=== PATIENT | male | born 1985 | race African-American/Black ===

== ENCOUNTER 2016-10-25 01:51 | Emergency (ER) | payer MEDICARE, MEDICAID ==
[2016-10-25] MEDS ORDERED: ACETAMINOPHEN 325 MG TABLET PO ONE (04:23)
[2016-10-25] MEDS ORDERED: LORAZEPAM 1 MG TABLET PO ONE (04:23)
--- NOTE | 2016-10-25 04:24 | ER Document Report ---
ED General - General TRAVEL OUTSIDE OF THE U.S. IN LAST 30 DAYS: No <LUDWIN ANSARI - Last Filed: 10/25/16 07:04> <JEANNA PRUITT - Last Filed: 10/25/16 13:03> - General Chief Complaint: Ankle Pain Stated Complaint: LEFT KNEE PAIN Notes: Patient is a 31-year-old male who presents with complaints of ankle pain. The ankle pain has been there for a while. On the interview patient is talking very rapidly and going from 1 topic to another without a smooth transition. Very consistent with priyanka. Patient says he did receive a shot of new [place] for his bipolar depression priyanka. She says that he is not due for another shot for another 26 days. He says he is taking other medications but he cannot focus long enough to tell me exactly what they are. 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 He says the pain is now improving. He says no new injury. (LUDWIN ANSARI) - Related Data Allergies/Adverse Reactions: Penicillins Allergy (Verified 08/27/16 07:28) IVP DYE Allergy (Uncoded 03/06/16 18:28) Past Medical History - Social History Smoking Status: Unknown if Ever Smoked Frequency of alcohol use: None Drug Abuse: None Family History: Reviewed & Not Pertinent, Other - mental illness Neurological Medical History: Reports: Hx Seizures Psychiatric Medical History: Reports: Hx Anxiety, Hx Bipolar Disorder, Hx Obsessive Compulsive Disorder - Immunizations Hx Diphtheria, Pertussis, Tetanus Vaccination: No <LUDWIN ANSARI - Last Filed: 10/25/16 07:04> Review of Systems <LUDWIN ANSARI - Last Filed: 10/25/16 07:04> <JEANNA PRUITT - Last Filed: 10/25/16 13:03> - Review of Systems Notes: My Normal Review Basic REVIEW OF SYSTEMS: CONSTITUTIONAL : Denies fever, chills, or sweats. Denies recent illness. EENT: Denies eye, ear, throat, or mouth pain or symptoms. Denies nasal or sinus congestion. RESPIRATORY: Denies cough, cold, or chest congestion. Denies shortness of breath, difficulty breathing, or wheezing. GASTROINTESTINAL: Denies abdominal pain. Denies nausea, vomiting, or diarrhea. Denies constipation. Last BM: MUSCULOSKELETAL: Denies neck or back pain or joint pain or swelling. SKIN: Denies rash or skin lesions. NEUROLOGICAL: Denies altered mental status or loss of consciousness. Denies headache. Denies weakness or paralysis or loss of use of either side. Denies problems with gait or speech. Denies sensory or motor loss. PSYCHIATRIC: Priyanka ALL OTHER SYSTEMS REVIEWED AND NEGATIVE. (LUDWIN ANSARI) Physical Exam <LUDWIN ANSARI - Last Filed: 10/25/16 07:04> <JEANNA PRUITT - Last Filed: 10/25/16 13:03> - Vital signs Vitals: Temp Pulse Resp BP Pulse Ox 98.0 F 126 H 18 133/83 H 96 10/25/16 02:27 10/25/16 02:27 10/25/16 02:27 10/25/16 02:27 10/25/16 02:27 (LUDWIN ANSARI) (JEANNA PRUITT) - Notes Notes: General Appearance: Well nourished, alert, cooperative, no acute distress, no obvious discomfort. Vitals: reviewed, See vital signs table. Head: no swelling or tenderness to the head Eyes: PERRL, EOMI, Conjuctiva clear Mouth: No decreasd moisture Neck: Supple, no neck tenderness, No thyromegaly Lungs: No wheezing, No rales, No rhonci, No accessory muscle use, good air exchange bilaterally. Heart: Normal rate, Regular rythm, No murmur, no rub Abdomen: Normal BS, soft, No rigidity, No abdominal tenderness, No guarding, no rebound, no abdominal masses, no organomegaly Extremities: strength 5/5 in all extremities, good pulses in all extremities, no swelling or tenderness in the extremities, no edema. Skin: warm, dry, appropriate color, no rash Neuro: speech clear, oriented x 3, normal affect, responds appropriately to questions. (LUDWIN ANSARI) Course - Laboratory Result Diagrams: 10/25/16 04:50 10/25/16 04:50 <LUDWIN ANSARI - Last Filed: 10/25/16 07:04> - Laboratory Result Diagrams: 10/25/16 04:50 10/25/16 04:50 <JEANNA PRUITT - Last Filed: 10/25/16 13:03> - Vital Signs Vital signs: Temp Pulse Resp BP Pulse Ox 98.0 F 80 18 130/80 H 100 10/25/16 08:21 10/25/16 08:21 10/25/16 08:21 10/25/16 08:21 10/25/16 08:21 (LUDWIN ANSARI) (JEANNA PRUITT) - Laboratory Laboratory results interpreted by me: 10/25/16 10/25/16 04:50 04:50 WBC 12.2 H RDW 14.2 H BUN 23 H Salicylates < 1.0 L Acetaminophen < 10 L (JEANNA PRUITT) - Transfer of Care Notes: 10/25/16 07:05 Patient is having complete flight of ideas. He is currently going from one topic to another. He is very tachycardic. He is speaking very fast. This. Having another manic episode. I have seen him in the past with similar presentation. We'll have psychiatry evaluate him. His ankle is fine. He is able walk without difficulties. X-ray was obtained and was negative. Patient is very agreeable to staying currently. 10/25/16 07:06 (LUDWIN ANSARI) Discharge <LUDWIN ANSARI - Last Filed: 10/25/16 07:04> <JEANNA PRUITT - Last Filed: 10/25/16 13:03> - Discharge Clinical Impression: Priyanka, Bipolar 1 disorder, Cannabis use disorder, mild, abuse Condition: Stable Disposition: HOME, SELF-CARE Instructions: Bipolar Disorder ([facility]) Additional Instructions: CONTINUE YOUR USUAL MEDS. FOLLOW UP WITH [facility] FOR ON-GOING CARE. Referrals: [facility] [Provider Group] - Follow up as needed
[2016-10-25 05:02] LABS: ABSOLUTE BASOPHILS # (AUTO) 0.1 10^3/uL (0.0-0.2); ABSOLUTE LYMPHOCYTES (AUTO) 3.3 10^3/uL (0.5-4.7); ABSOLUTE NEUT (AUTO) 7.6 10^3/uL (1.7-8.2); EOSINOPHILS % (AUTO) 0.3 % (0-6); HEMATOCRIT 42.7 % (37.9-51.0); HEMOGLOBIN 14.7 g/dL (13.5-17.0); HGB HCT DIFFERENCE 1.4; LYMPHOCYTES % (AUTO) 27.5 % (13-45); MEAN CORPUSCULAR HEMOGLOBIN 27.8 pg (27.0-33.4); MEAN CORPUSCULAR HGB CONC 34.4 g/dL (32.0-36.0); MEAN CORPUSCULAR VOLUME 81 fl (80-97); MONOCYTES % (AUTO) 8.4 % (3-13); RED BLOOD COUNT 5.29 10^6/uL (4.35-5.55); RED CELL DISTRIBUTION WIDTH 14.2 % (11.5-14.0); SEGMENTED NEUTROPHILS % (AUTO) 62.8 % (42-78); WHITE BLOOD COUNT 12.2 10^3/uL (4.0-10.5)
[2016-10-25 05:23] LABS: ALANINE AMINOTRANSFERASE 38 U/L (21-72); ALBUMIN 4.4 g/dL (3.5-5.0); ALKALINE PHOSPHATASE 84 U/L (38-126); ANION GAP 14 (5-19); ASPARTATE AMINO TRANSFERASE 25 U/L (17-59); BILIRUBIN,TOTAL 0.4 mg/dL (0.2-1.3); BLOOD UREA NITROGEN 23 mg/dL (7-20); CALCIUM 9.6 mg/dL (8.4-10.2); CARBON DIOXIDE 25 mmol/L (22-30); CHLORIDE 102 mmol/L (98-107); GLUCOSE 83 mg/dL (75-110); POTASSIUM 4.5 mmol/L (3.6-5.0); SODIUM 141.3 mmol/L (137-145); TOTAL PROTEIN 7.4 g/dL (6.3-8.2)
[2016-10-25 05:24] LABS: ALCOHOL < 10 mg/dL (NONE DETECTED)
[2016-10-25 06:03] LABS: APPEARANCE,URINE CLEAR; BILIRUBIN,URINE NEGATIVE (NEGATIVE); GLUCOSE, URINE NEGATIVE (NEGATIVE); KETONES,URINE NEGATIVE (NEGATIVE); LEUKOCYTE ESTERASE,URINE NEGATIVE (NEGATIVE); NITRITE,URINE NEGATIVE (NEGATIVE); PROTEIN,URINE NEGATIVE (NEGATIVE); URINE SPECIFIC GRAVITY 1.021; UROBILINOGEN,URINE NEGATIVE mg/dL (<2.0)
[2016-10-25 06:15] LABS: URINE BARBITURATES SCREEN NEGATIVE; URINE METHADONE SCREEN NEGATIVE; URINE PHENCYCLIDINE SCREEN NEGATIVE
--- NOTE | 2016-10-25 08:57 | EKG REPORT ---
SEVERITY:- OTHERWISE NORMAL ECG - SINUS TACHYCARDIA : Confirmed by: Mejia Kasper MD 25-Oct-2016 08:57:09
--- NOTE | 2016-10-25 10:00 | ER Document Report ---
Doctor's Note Notes: 10/25/16 09:58 Medical rounds: Chart reviewed and patient interviewed briefly. He continues to exhibit manic behavior, pressured speech and flight of ideas. His only physical complaint is pain in the ankle which has been evaluated by Dr. Luo. He does not appear to have any discomfort when ambulating. Laboratory values are satisfactory. Vital signs are stable. He is medically stable pending psychosocial evaluation and disposition.
[2016-10-25] MEDS ORDERED: OLANZAPINE 5 MG TABLET PO ONE (12:32)
--- NOTE | 2016-10-25 12:37 | PSYCHOLOGICAL NOTE ---
Psych Note - Psych Note Psych Note: Patient is a 31 year old male who initially presented to [facility] ED via EMS with c/ o ankle pain. Patient was medically cleared for ankle related complaints; however, was found to be manic with tangential speech/flight of ideas. Note, patient has two medical records, one containing the middle initial "L" and one without. Patient was most recently seen 09/26 for psychosis and was sent to [facility]. Patient this morning is pacing and hyperverbal. Patient remembers this clinician and talks openly (from his doorway) about [facility], etc. Patient is able to provide minimal information regarding any precipitating events, and maintains he has been medication compliant. Patient reports he was discharged from [facility] yesterday and is on day 5 of his 30 day Haldol shot. Patient does talk about other medications he is required to take, to include Zyprexa and Vistaril. Patient talks extensively about various stories, but provides little meaningful information and is difficult to track. However, patient is able to be redirected and return to topic with prompts. Patient denies suicidal/homicidal ideations, intent, plan, or means. Note, patient has a long history of requesting benzodiazapenes in lieu of mood stabilizers and or antipsychotics. Patient's Uncle, Casper : left [facility] requesting return contact Patient's mother, Martina Hunt states per APS, neither of her sons are permitted to stay in her residence. She did nto expand on this, but did state she is afraid of him, but denies there were any specific incidents to cause her to be afraid.[facility] states: the patient was discharged yesterday and was discharged with: Haldol Deconate ( admin 10/15 @ 150 mg), Vistaril 50 mg q6prn for anxiety; Zyprexa 15 mg qhs; Ambien. Prescriptions were sent to [facility], and patient was to follow up with [facility]. Additionally, patient was noted throughout his stay to present with grandiosity , and elevated mood with perseverative type thoughts. Patient's discharge plan reportedly included ANTHONY transporting patient back to his apartment where he would collect his belongings, and go to [employer] to withdraw money, and then go to [facility]. Patient is A&O. Mood is labile with occasional tearful or laughing affect. Patient denies suicidal/homicidal ideations, intent, plan, or means. Patient denies A/V h; it is unclear if he is experiencing delusions due to his rapid and pressured speech with tangential speech. 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 1. 296.40 (F31) Bipolar I Disorder, Unspecified 2. 305.20 (F12.10) Cannabis Use Disorder, Mild 3. R/O Anxiolytic, Benzodiazepine Use Disorder Patient is psychiatrically cleared for discharge to follow up with [facility]. Patient was inpatient at [facility] for multiple days, and was discharged yesterday. After discussion with [facility], patient's presentation upon discharge was described and is congruent to the current presentation. Patient is considered at his baseline, which includes elevated mood and tangential thoughts. Patient does not meet criteria for IVC per the [id number] as he is able to report how he cares for himself, denies suicidal/homicidal ideations, etc. Patient is able to be redirected when on a tangent, and will return to topic with prompts. Patient did in fact follow through with his discharge plan of care and states he plans to continue to follow through, by picking up his medications from the pharmacy, and returning to Inn until Wednesday. Patient provided contact information for his uncle, and a message was left requesting return contact. I consulted with Dr. Ogden in regards to the care and management of this patient. ED MD is in agreement with disposition and recommendations.
[2016-10-25 13:46] VITALS: BP 129/80
== END 2016-10-25 13:47 | disposition home or self-care (01) ==
LOC: ER 01:51
DX: F31.9 Bipolar disorder, unspecified (principal); F12.19 Cannabis abuse with unspecified cannabis-induced disorder; F41.9 Anxiety disorder, unspecified; R00.0 Tachycardia, unspecified; M25.579 Pain in unspecified ankle and joints of unspecified foot; G89.29 Other chronic pain; Z79.899 Other long term (current) drug therapy; Z91.041 Radiographic dye allergy status; Z88.0 Allergy status to penicillin
CPT/HCPCS: 93005; 99284; 36415; 85025; 80053; 81001; 73610; 93010; G0479 ×4; A9270 ×3; 80307; 99285

== ENCOUNTER 2016-10-25 23:34 | Emergency (ER) | payer MEDICARE, MEDICAID ==
--- NOTE | 2016-10-26 03:46 | ER Document Report ---
ED General - General TRAVEL OUTSIDE OF THE U.S. IN LAST 30 DAYS: No - HPI Patient complains to provider of: in need of psychiatric evaluation - General Chief Complaint: Psych Problem Stated Complaint: PYSCH EPISODE - HPI Notes: Patient [facility] for possible psychiatric evaluation. Patient was seen in the local law for Reji cote stated that he had no place to stay he was told to go to [facility] patient does say he may need a psychiatric evaluation and therefore was transferred here to the ER. Patient was recently seen and evaluated by psychiatric team the last 24 hours prior to this visit patient was given follow-up patient was staying at the days in. Upon my evaluation the patient patient sits up patienttalking with his hands as though he is signing. Patient states that "the police do not like me". Patient states that he is from [facility]. Patient also states that he can speak Welsh and "black people speak" patient states that he is unable to understand "white people speak" Otherwise patient does have some pressured speech and tangential thinking. Patient upon initial evaluation was sleeping easily arousable patient has no other complaints is not endorsing hallucinations homicidal suicidal ideation. Patient states that he was trying to get back to the [facility] however he is unaware of the name that his room is under he did try to contact his uncle however has is not be able to contact his family members. (MAURO SUTTON) - Related Data Allergies/Adverse Reactions: Penicillins Allergy (Verified 08/27/16 07:28) IVP DYE Allergy (Uncoded 03/06/16 18:28) Past Medical History - General Information source: Patient, Emergency Med Personnel - Social History Smoking Status: Current Every Day Smoker Chew tobacco use (# tins/day): No Frequency of alcohol use: Occasional Drug Abuse: None Family History: Reviewed & Not Pertinent, Other - mental illness Patient has suicidal ideation: No Patient has homicidal ideation: No Neurological Medical History: Reports: Hx Seizures Psychiatric Medical History: Reports: Hx Anxiety, Hx Bipolar Disorder, Hx Obsessive Compulsive Disorder - Immunizations Hx Diphtheria, Pertussis, Tetanus Vaccination: No Review of Systems - Review of Systems Constitutional: No symptoms reported EENT: No symptoms reported Cardiovascular: No symptoms reported Respiratory: No symptoms reported Gastrointestinal: No symptoms reported Genitourinary: No symptoms reported Male Genitourinary: No symptoms reported Musculoskeletal: No symptoms reported Skin: No symptoms reported Hematologic/Lymphatic: No symptoms reported Neurological/Psychological: Other - Tangential thought process Physical Exam - Vital signs Interpretation: Normal - General General appearance: Appears well, Alert - HEENT Head: Normocephalic, Atraumatic Eyes: Normal Pupils: PERRL - Respiratory Respiratory status: No respiratory distress Chest status: Nontender Breath sounds: Normal Chest palpation: Normal - Cardiovascular Rhythm: Regular Heart sounds: Normal auscultation Murmur: No - Abdominal Inspection: Normal Distension: No distension Bowel sounds: Normal Tenderness: Nontender Organomegaly: No organomegaly - Back Back: Normal, Nontender - Extremities General upper extremity: Normal inspection, Nontender, Normal color, Normal ROM , Normal temperature General lower extremity: Normal inspection, Nontender, Normal color, Normal ROM , Normal temperature, Normal weight bearing. No: Shala's sign - Neurological Neuro grossly intact: Yes Cognition: Normal Orientation: AAOx4 [place] Coma Scale Eye Opening: Spontaneous Kavita Coma Scale Verbal: Oriented [place] Coma Scale Motor: Obeys Commands [place] Coma Scale Total: 15 Speech: Normal Motor strength normal: LUE, RUE, LLE, RLE Sensory: Normal - Psychological Associated symptoms: Anxious, Tangential speech, Other - Pressure speech - Skin Skin Temperature: Warm Skin Moisture: Dry Skin Color: Normal Course - Re-evaluation Re-evalutation: 10/26/16 03:45 Patient was recent seen and evaluated by psychiatric team. At this time we are trying to locate family members taken take custody of the patient. Patient does have underlying psychiatric disease and more likely is malingering however at this time does not think he meets any criteria for IVC but would be hesitant to discharge patient without proper resources. If we are unable to contact family members take custody of the patient patient should be evaluated by her public health social worker and possibly her psychiatric of team in the morning for local resources. 10/26/16 03:47 (MAURO SUTTON) - Vital Signs Vital signs: Temp Pulse Resp BP Pulse Ox 96.9 F L 73 16 121/75 97 10/26/16 08:00 10/26/16 08:00 10/26/16 08:00 10/26/16 08:00 10/26/16 08:00 (MAURO SUTTON) (TIM KEEN) Discharge - Discharge Clinical Impression: Bipolar 1 disorder Psychosis Qualifiers: Psychosis type: unspecified psychosis type Qualified Code(s): F29 - Unspecified psychosis not due to a substance or known physiological condition Condition: Stable Disposition: HOME, SELF-CARE Additional Instructions: rest, continue current meds, return if worse Referrals: HALEIGH BARRON MD [ACTIVE STAFF] - Follow up as needed
[2016-10-26 08:34] VITALS: BP 121/75
--- NOTE | 2016-10-26 09:52 | ER Document Report ---
Doctor's Note Notes: 10/26/16 09:50 I have seen this pt. this am and he has no c/o at this time. He feels all of his needs are being met and his physical exam is normal. He is awaiting disposition per mental health.
[2016-10-26] MEDS ORDERED: OLANZAPINE 5 MG TABLET PO ONE (11:04)
[2016-10-26] MEDS ORDERED: BENZTROPINE MESYLATE 1 MG TABLET PO ONE (11:05)
[2016-10-26] MEDS ORDERED: HYDROXYZINE PAMOATE 50 MG CAPSULE PO ONE (11:05)
--- NOTE | 2016-10-26 11:09 | PSYCHOLOGICAL NOTE ---
Psych Note - Psych Note Psych Note: Patient is a 31 year old male who presents after being discharged from this Department yesterday for psychiatric consult. Patient this morning states he went to the mall to meat his cousin, who brought him to [place] to meet his uncle. Patient states he waited for over an hour and then was concerned he was at the wrong [employer] so he walked to the other one. Patient states he waited there for a long time, and then went to the police station to ask for assistance with obtaining his personal belongings left at the home he was evicted from. Patient states he was told it was too late, so he left and then walked around in the rain, grew anxious and had "flashbacks" so he returned to the police station. Patient states he was brought to the ED. Patient this morning denies wanting to harm himself or anyone else. Patient states he can call family members to assist him, as well as present to the police station to request assistance with retrieving his belongings. Patient is able to report that today is Wednesday, an observed holiday, and that his bank is closed until Wednesday. Patient states unless he has his [employer] card, he cannot get [employer] to pay for his hotel room until tomorrow. Patient is A&Ox4. Mood is anxious with normal affect. Patient denies suicidal/ homicidal ideations, intent, plan, or means. Patient denies A/V h. Thought processes are flight of ideas. Conversational speech was pressured. Intellectual abilities were estimated within lower functioning range. Attention and focus were fair. Insight, judgment, and impulse control were poor. 1. 296.40 (F31) Bipolar I Disorder, Unspecified 2. 305.20 (F12.10) Cannabis Use Disorder, Mild 3. R/O Anxiolytic, Benzodiazepine Use Disorder Patient is psychiatrically cleared for discharge to follow up with [facility]. Patient was inpatient at [facility] for multiple days, and was discharged Wednesday. Patient was seen Wednesday night after he presented to the ED via EMS for ankle pain. Did contact [facility] yesterday and patient's presentation upon discharge was described and is congruent to his presentation yesterday as well as current presentation. Patient is considered at his baseline , which includes elevated mood and tangential thoughts. Patient does not meet criteria for IVC per the [id number] as he is able to report how he cares for himself, denies suicidal/homicidal ideations, etc. Patient demonstrated good problem solving skills by contacting DPS and requesting assistance from ANTHONY in retrieving his belongings from the apartment he was evicted from. Patient's current plan is to take the bus as close to the apartment as possible, " politely knock" and request his wallet, computer, and phone, and then take the bus to [place] [facility]. I consulted with Dr. Ogden in regards to the care and management of this patient. ED MD is in agreement with disposition and recommendations.
== END 2016-10-26 11:30 | disposition home or self-care (01) ==
LOC: ER 23:34
DX: F29 Unspecified psychosis not due to a substance or known physiological condition (principal); F31.9 Bipolar disorder, unspecified; F17.200 Nicotine dependence, unspecified, uncomplicated; Z88.0 Allergy status to penicillin; Z91.041 Radiographic dye allergy status
CPT/HCPCS: 99285; A9270 ×2

== ENCOUNTER 2016-10-29 13:37 | Emergency (ER) | payer MEDICARE, MEDICAID ==
[2016-10-29 14:41] LABS: APPEARANCE,URINE CLEAR; BILIRUBIN,URINE NEGATIVE (NEGATIVE); GLUCOSE, URINE NEGATIVE (NEGATIVE); KETONES,URINE NEGATIVE (NEGATIVE); LEUKOCYTE ESTERASE,URINE NEGATIVE (NEGATIVE); NITRITE,URINE NEGATIVE (NEGATIVE); PROTEIN,URINE NEGATIVE (NEGATIVE); URINE SPECIFIC GRAVITY 1.023; UROBILINOGEN,URINE NEGATIVE mg/dL (<2.0)
[2016-10-29 14:59] LABS: URINE BARBITURATES SCREEN NEGATIVE; URINE METHADONE SCREEN NEGATIVE; URINE PHENCYCLIDINE SCREEN NEGATIVE
[2016-10-29 15:00] LABS: ABSOLUTE BASOPHILS # (AUTO) 0.1 10^3/uL (0.0-0.2); ABSOLUTE EOSINOPHILS # (AUTO) 0.2 10^3/uL (0.0-0.6); ABSOLUTE LYMPHOCYTES (AUTO) 3.2 10^3/uL (0.5-4.7); ABSOLUTE MONOCYTES (AUTO) 0.9 10^3/uL (0.1-1.4); ABSOLUTE NEUT (AUTO) 8.2 10^3/uL (1.7-8.2); BASOPHILS % (AUTO) 0.5 % (0-2); EOSINOPHILS % (AUTO) 1.2 % (0-6); HEMATOCRIT 39.5 % (37.9-51.0); HEMOGLOBIN 13.6 g/dL (13.5-17.0); HGB HCT DIFFERENCE 1.3; LYMPHOCYTES % (AUTO) 25.5 % (13-45); MEAN CORPUSCULAR HEMOGLOBIN 27.8 pg (27.0-33.4); MEAN CORPUSCULAR HGB CONC 34.6 g/dL (32.0-36.0); MEAN CORPUSCULAR VOLUME 80 fl (80-97); MONOCYTES % (AUTO) 7.4 % (3-13); RED BLOOD COUNT 4.91 10^6/uL (4.35-5.55); RED CELL DISTRIBUTION WIDTH 14.6 % (11.5-14.0); SEGMENTED NEUTROPHILS % (AUTO) 65.4 % (42-78); WHITE BLOOD COUNT 12.5 10^3/uL (4.0-10.5)
[2016-10-29 15:20] LABS: ALANINE AMINOTRANSFERASE 34 U/L (21-72); ALBUMIN 4.4 g/dL (3.5-5.0); ALKALINE PHOSPHATASE 83 U/L (38-126); ANION GAP 14 (5-19); ASPARTATE AMINO TRANSFERASE 23 U/L (17-59); BILIRUBIN,TOTAL 0.6 mg/dL (0.2-1.3); BLOOD UREA NITROGEN 12 mg/dL (7-20); CALCIUM 9.8 mg/dL (8.4-10.2); CARBON DIOXIDE 25 mmol/L (22-30); CHLORIDE 104 mmol/L (98-107); CREATININE RESULT 0.84 mg/dL (0.52-1.25); GLUCOSE 85 mg/dL (75-110); POTASSIUM 3.8 mmol/L (3.6-5.0); SODIUM 142.5 mmol/L (137-145); TOTAL PROTEIN 7.4 g/dL (6.3-8.2)
[2016-10-29 15:21] LABS: ALCOHOL < 10 mg/dL (NONE DETECTED)
--- NOTE | 2016-10-29 15:31 | ER Document Report ---
ED Psych Disorder / Suicide - General Chief Complaint: Anxiety Stated Complaint: BEHAVIOR ISSUES Time seen by provider: 15:30 Mode of Arrival: Ambulatory Information source: Patient Notes: This is a 31-year-old man with a history of bipolar affective disorder who presents to the emergency room wanting a psychiatric evaluation. The patient denies any hallucinations. He is very emotionally labile at this point and appears very delusional. He denies any suicidal ideations. He does not appear to have significant medical judgment at this time. He is very tangential and goes from one subject to the next in a matter of seconds without any pauses. TRAVEL OUTSIDE OF THE U.S. IN LAST 30 DAYS: No - HPI Patient complains to provider of: Bizarre behavior Onset: Last week Onset was: Gradual Quality of pain: No pain Severity: None Pain Level: Denies Suicide Risk Factors: Lack of social support Situational problems related to: denies: Daughter, Legal problems, Lost job, Parent, Recent , Recent divorce, School, Sexual orientation, Significant other, Son, Spouse, Work, Other Suicide Attempt Method: denies: Drowning, Hanging, Motor Vehicle, Overdose, Shooting, Stabbing/Cutting, Train, Other Overdose of: No: Acetominophen, Alcohol, Anticholinergic, Anti-depressants, Benzodiazepine, Salicylate, Tricyclic Antidepressant, Other Injury to: No: Generalized, Abdomen, Ankle, Back, Breast, Buttocks, Chest, Elbow , Epigastric, Flank, Face, Finger, Foot, Hand, Head, Hip, Knee, Leg, Lower extremity, Mouth, Neck, Pelvic, Penis, Perineum, Rectum, Shoulder, Testicle, Thigh, Throat, Trunk, Upper extremity, Vagina, Wrist Normal mood: No Associated symptoms: Agitated, Flight of ideas, Labile Similar symptoms previously: Yes Recently seen / treated by doctor: Yes - Related Data Allergies/Adverse Reactions: Penicillins Allergy (Verified 10/29/16 16:44) IVP DYE Allergy (Uncoded 10/29/16 16:44) Home Medications: Current Home Medications Alprazolam [Xanax 0.5 mg Tablet] 0.5 mg PO DAILYP PRN 10/29/16 [History] Clonazepam [Klonopin] 1 mg PO QAM 10/29/16 [History] Clonazepam [Klonopin] 1 mg PO QHS 10/29/16 [History] Haloperidol Decanoate 100 mg IM [id number] 10/29/16 [History] Hydroxyzine Pamoate 50 mg PO Q6HP PRN 10/29/16 [History] Olanzapine 15 mg PO QHS 10/29/16 [History] Past Medical History - General Information source: Patient - Social History Smoking Status: Never Smoker Cigarette use (# per day): No Chew tobacco use (# tins/day): No Frequency of alcohol use: None Drug Abuse: None Lives with: Family Family History: Reviewed & Not Pertinent, Other - mental illness Patient has suicidal ideation: No Patient has homicidal ideation: No - Medical History Medical History: Negative Neurological Medical History: Reports: Hx Seizures Psychiatric Medical History: Reports: Hx Anxiety, Hx Bipolar Disorder, Hx Obsessive Compulsive Disorder Surgical Hx: Negative - Immunizations Hx Diphtheria, Pertussis, Tetanus Vaccination: No Review of Systems - Review of Systems Constitutional: No symptoms reported EENT: No symptoms reported Cardiovascular: No symptoms reported Respiratory: No symptoms reported Gastrointestinal: No symptoms reported Genitourinary: No symptoms reported Male Genitourinary: No symptoms reported Musculoskeletal: No symptoms reported Skin: No symptoms reported Hematologic/Lymphatic: No symptoms reported Neurological/Psychological: See HPI Physical Exam - Vital signs Vitals: Resp 18 10/29/16 14:00 Notes: Physical exam: GENERAL: 31-year-old man, alert, tangential thoughts, appears hyperactive HEAD: Atraumatic, normocephalic. EYES: Pupils equal round and reactive to light, extraocular movements intact, sclera anicteric, conjunctiva are normal. ENT: TMs normal, nares patent, oropharynx clear without exudates. Moist mucous membranes. NECK: Normal range of motion, supple without lymphadenopathy or JVD. LUNGS: Breath sounds clear to auscultation bilaterally and equal. No wheezes rales or rhonchi. HEART: Regular rate and rhythm without murmurs, rubs or gallops. ABDOMEN: Soft, nontender, normoactive bowel sounds. No guarding, no rebound. No masses appreciated. EXTREMITIES: Normal range of motion, no pitting or edema. No clubbing or cyanosis. NEUROLOGICAL: Cranial nerves II through XII grossly intact. Normal speech, normal gait. PSYCH: Emotionally labile SKIN: Warm, Dry, normal turgor, no rashes or lesions noted. Course - Vital Signs Vital signs: Temp Pulse Resp BP Pulse Ox 97.3 F 94 18 123/84 100 10/29/16 18:04 10/29/16 18:04 10/29/16 18:04 10/29/16 18:04 10/29/16 18:04 - Laboratory Result Diagrams: 10/29/16 14:51 10/29/16 14:51 Laboratory results interpreted by me: 10/29/16 10/29/16 14:51 14:51 WBC 12.5 H RDW 14.6 H Salicylates < 1.0 L Acetaminophen < 10 L Discharge - Discharge Clinical Impression: mood disorder NOS Condition: Stable Disposition: PSYCH HOSP/UNIT Instructions: Anxiety ([facility])
--- NOTE | 2016-10-29 19:49 | EKG REPORT ---
SEVERITY:- NORMAL ECG - SINUS RHYTHM : Confirmed by: Shmuel Fregoso 29-Oct-2016 19:48:30
--- NOTE | 2016-10-30 08:02 | PSYCHOLOGICAL NOTE ---
Psych Note - Psych Note Psych Note: Patient disclosed that he had a conditional discharge from [facility]. He continued disclosed that his conditional discharge included that he had to come back if he had paranoia, thoughts of hurting himself, or thoughts of hurting others. Patient states that he came in because he needs to get back to [facility] for treatment because his increase in paranoia. He then explained that they really did not want to release him however they wanted to let him have the last day of not in [facility]." Patient continued to discuss a multitude of topics to include that he is professed Spiritism karina, asking if the clinician "excepted Florentin Jeong as her savior." When questioned further about different holidays in the Spiritism karina patient was unable to disclose and became agitated stating he did not want to discuss how he celebrates because his baptist is his private karina. The patient continued to demonstrate an inability to understand time stating that he had been in [facility] "12 million months." Patient states that he has autism however this has never been addressed. He continued expressed concern that the care he receives his only for his mental health concerns and never for his autistic concerns. Patient is alert however is not orientated to person time and circumstance. However he does understand that he is in [facility] and wants to get to [place] so he can get into [facility]. Patient's mood is euthymic with congruent affect. Patient denies suicidal and homicidal ideation. Patient currently is not demonstrating behavior indicative to responding to internal stimuli. 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 Thought process consists of flight of ideas. conversational speech is pressured. Eye contact was well maintained. Intellectual abilities appear to be within normal range. Attention and concentration are fair. Insight, judgment, impulse control are historically poor; however, he is able to successfully advocate for himself, and ensure self-care i.e. food, long-term, getting dressed, bathing . 1. 296.40 (F31) Bipolar I Disorder, Unspecified 2. 305.20 (F12.10) Cannabis Use Disorder, Mild 3. R/O Anxiolytic, Benzodiazepine Use Disorder Patient is recommended for rescind of IVC and is considered psychiatrically cleared for discharge. 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 The patient is able to communicate how he is able to ensure ADLs. It is noted that patient states he is not suicidal nor homicidal and that he has increased paranoia and wanted to come in for a ride to [place]. This patient does not meet IVC criteria per [place] GS 122C; he is at his baseline which includes elevated mood and tangential thoughts and is not a danger to himself or others. Dr. Ogden was consulted on this patient Patient is psychiatrically cleared for discharge; attending physician is not in agreement with recommendations and disposition.
[2016-10-30 08:32] VITALS: BP 124/75
--- NOTE | 2016-10-30 12:05 | PSYCHOLOGICAL NOTE ---
Psych Note - Psych Note Psych Note: Patient states that he has a recurring sports injury on his big toe and wants assistance with this. Patient disclosed he does have a appointment with [facility] next week. Patient states that he rents a room from someone in town but doesn' t feel comfortable living there. He continued disclosed that his lease is up in November. Clinician notes delusions continue however they are not a risk to the patient or others. Patient is alert however is not orientated to person time and circumstance. However he does understand that he is in [facility] and wants to get to [place] so he can get into [facility]. Patient's mood is euthymic with congruent affect. Patient denies suicidal and homicidal ideation. Patient currently is not demonstrating behavior indicative to responding to internal stimuli. 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 Thought process consists of flight of ideas. conversational speech is pressured. Eye contact was well maintained. Intellectual abilities appear to be within normal range. Attention and concentration are fair. Insight, judgment, impulse control are historically poor; however, he is able to successfully advocate for himself, and ensure self-care i.e. food, nursing home, getting dressed, bathing . 1. 296.40 (F31) Bipolar I Disorder, Unspecified 2. 305.20 (F12.10) Cannabis Use Disorder, Mild 3. R/O Anxiolytic, Benzodiazepine Use Disorder Patient is recommended for rescind of IVC and is considered psychiatrically cleared for discharge. 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 The patient is able to communicate how he is able to ensure ADLs. It is noted that patient states he is not suicidal nor homicidal and that he has increased paranoia and wanted to come in for a ride to [place]. This patient does not meet IVC criteria per [place] GS 122C; he is at his baseline which includes elevated mood and tangential thoughts and is not a danger to himself or others. Patient will be referred to [facility] with a referral for [facility]. Dr. Ogden was consulted on this patient Patient is psychiatrically cleared for discharge;
[2016-10-30] MEDS ORDERED: ACETAMINOPHEN 325 MG TABLET PO ONE (12:54)
== END 2016-10-30 13:36 | disposition home or self-care (01) ==
LOC: ER 13:37
DX: F39 Unspecified mood [affective] disorder (principal); F41.9 Anxiety disorder, unspecified; Z79.899 Other long term (current) drug therapy
CPT/HCPCS: 93005; 99285; 36415; 80307 ×4; 85025; 80053; 81001; 93010; A9270

== ENCOUNTER 2016-10-30 14:42 | Emergency (ER) | payer MEDICARE, MEDICAID ==
--- NOTE | 2016-10-30 15:09 | ER Document Report ---
ED Medical Screen (RME) - General Chief Complaint: Toe Injury Stated Complaint: TOE INJURY Time seen by provider: 15:07 Mode of Arrival: Ambulatory Information source: Patient Notes: 31 yo male present to ed for pain and injury to left great toe since yesterday TRAVEL OUTSIDE OF THE U.S. IN LAST 30 DAYS: No - HPI Onset: Yesterday Onset/Duration: Gradual, Persistent Quality of pain: Sharp Severity: Moderate Pain Level: 4 Associated Symptoms: Other - left great toe pain and injury Exacerbated by: Movement, Walking Relieved by: Denies Similar symptoms previously: No Recently seen / treated by doctor: Yes - Related Data Smoking: Cigarettes, Other - 1.5 ppd Frequency of alcohol use: Social Drug Abuse: Marijuana Allergies/Adverse Reactions: Penicillins Allergy (Verified 10/30/16 15:06) IVP DYE Allergy (Uncoded 10/30/16 15:06) Past Medical History Neurological Medical History: Reports: Hx Seizures Psychiatric Medical History: Reports: Hx Anxiety, Hx Bipolar Disorder, Hx Obsessive Compulsive Disorder - Immunizations Hx Diphtheria, Pertussis, Tetanus Vaccination: No
--- NOTE | 2016-10-30 15:54 | ER Document Report ---
ED Extremity Problem, Lower - General Chief Complaint: Toe Injury Stated Complaint: TOE INJURY Time seen by provider: 15:48 Mode of Arrival: Ambulatory Notes: This is a 31-year-old male that presents today with left great toe pain. Patient stated that yesterday morning at 0[address]pping in the street, and he jumped up in the air and landed toe-first into the cement. He did not immediately feel any pain, however as the day progressed he started to notice the pain. It is now a constant 8 out of 10 pain at the metatarsal phalangeal joint. TRAVEL OUTSIDE OF THE U.S. IN LAST 30 DAYS: No - Related Data Allergies/Adverse Reactions: No Known Drug Allergies Allergy (Verified 10/13/16 07:22) Penicillins Allergy (Verified 10/30/16 15:06) chocolate Allergy (Uncoded 10/13/16 07:22) IVP DYE Allergy (Uncoded 10/30/16 15:06) pork Allergy (Uncoded 10/13/16 07:22) Past Medical History - General Information source: Patient - Social History Smoking Status: Current Every Day Smoker Chew tobacco use (# tins/day): No Frequency of alcohol use: Social Drug Abuse: Marijuana Family History: Reviewed & Not Pertinent, Other - mental illness Patient has suicidal ideation: No Patient has homicidal ideation: No Neurological Medical History: Reports: Hx Seizures Psychiatric Medical History: Reports: Hx Anxiety, Hx Bipolar Disorder, Hx Obsessive Compulsive Disorder - Immunizations Hx Diphtheria, Pertussis, Tetanus Vaccination: No Review of Systems - Review of Systems Constitutional: denies: Chills, Fever EENT: No symptoms reported Cardiovascular: denies: Chest pain Respiratory: denies: Cough Gastrointestinal: denies: Abdominal pain Genitourinary: No symptoms reported Musculoskeletal: See HPI Skin: No symptoms reported Neurological/Psychological: No symptoms reported Physical Exam - Vital signs Vitals: Temp Pulse Resp BP Pulse Ox 97.6 F 105 H 20 124/80 100 10/30/16 15:06 10/30/16 15:06 10/30/16 15:06 10/30/16 15:06 10/30/16 15:06 - HEENT Head: Normocephalic, Atraumatic Eyes: Normal Conjunctiva: Normal. No: Icteric - Respiratory Respiratory status: No respiratory distress Breath sounds: Normal. No: Rales, Rhonchi, Stridor, Wheezing - Cardiovascular Rhythm: Regular Heart sounds: Normal auscultation - Abdominal Bowel sounds: Normal Tenderness: Nontender - Extremities General upper extremity: Normal inspection General lower extremity: Normal inspection, Normal strength Foot: Tender - Tender to moderate palpation of the left great toe. Able to passively flex and extend the DIP with pain. Normal sensation to all digits bilaterally. +2 dorsalis pedis bilaterally. Normal sensation in all digits of the foot bilaterally. Normal sensation to the sole of the foot and dorsal aspect of the foot bilaterally. Capillary refill in great toe of left foot normal. - Neurological Cognition: Normal. No: Confused - Psychological Associated symptoms: Normal affect, Normal mood - Skin Skin Temperature: Warm Skin Moisture: Dry Skin Color: Normal Course - Re-evaluation Re-evalutation: 10/30/16 16:00 Patient was seen here earlier today for behavioral issues. Upon discharge he immediately checked himself back in for left great toe injury. Patient is able to bear weight. Radiograph images were shared with the patient. He was given multiple opportunities to ask questions. He stated that that he will follow up with primary care physician. Crutches were given to the patient and he accepted. He was taught how to use them. - Vital Signs Vital signs: Temp Pulse Resp BP Pulse Ox 98.4 F 103 H 20 113/63 97 10/30/16 16:37 10/30/16 16:37 10/30/16 15:06 10/30/16 16:37 10/30/16 16:37 Discharge - Discharge Clinical Impression: Toe pain, left Condition: Good Disposition: HOME, SELF-CARE Additional Instructions: Follow-up with primary care physician as soon as possible. Return to the emergency department if symptoms worsen such as loss of sensation to the extremity redness swelling loss of pulses etc. Prescriptions: Acetaminophen 500 mg PO BID #6 tablet Referrals: STEVAN ATKINSON MD [Primary Care Provider] - Follow up as needed
[2016-10-30 16:56] VITALS: BP 113/63
== END 2016-10-30 16:40 | disposition home or self-care (01) ==
LOC: ER 14:42
DX: M79.675 Pain in left toe(s) (principal); X58.XXXA Exposure to other specified factors, initial encounter; Y93.89 Activity, other specified; Y92.410 Unspecified street and highway as the place of occurrence of the external cause; Z88.0 Allergy status to penicillin; Z88.5 Allergy status to narcotic agent; Z91.018 Allergy to other foods; Z91.041 Radiographic dye allergy status; F17.200 Nicotine dependence, unspecified, uncomplicated; F22 Delusional disorders; F41.9 Anxiety disorder, unspecified; F31.9 Bipolar disorder, unspecified
CPT/HCPCS: 36415; 80053; 80307; 81001; 85025; 93005; 93010; 99283; 99285; J3490

== ENCOUNTER 2016-10-30 23:32 | Emergency (ER) | payer MEDICARE, MEDICAID ==
[2016-10-31] MEDS ORDERED: OLANZAPINE 5 MG TAB.RAPDIS PO ONE (00:09)
[2016-10-31] MEDS ORDERED: ACETAMINOPHEN 325 MG TABLET PO ONE (00:09)
--- NOTE | 2016-10-31 00:25 | ER Document Report ---
ED Psych Disorder / Suicide - General Mode of Arrival: Medic Information source: Patient TRAVEL OUTSIDE OF THE U.S. IN LAST 30 DAYS: No - HPI Patient complains to provider of: Other - see above Associated symptoms: Other - see above <RAJWINDER ABRAHAM - Last Filed: 10/31/16 00:09> <NANCY MCLEAN - Last Filed: 10/31/16 01:23> - General Chief Complaint: Psych Problem Stated Complaint: TOE INJURY Notes: 31 year old male with history of bipolar disorder and anxiety presents to the ED via EMS complaining of left great toe pain and wanting to be transferred to [facility] [place] for "head issues". Patient explains that he is extremely paranoid since being discharged from [facility] on 2015. Patient states that he is to report back to [facility] if he begins to feel unwell as per orders by the patrol judge. Patient explains that his paranoia stems from the [place] [employer]. Patient believes that Nadeen Pineda is colluding with some "rappers", his mother's friend, and [employer] and preventing him from staying at his home. Patient denies suicidal ideation, homicidal ideation, and auditory/visual hallucination. Patient states that he currently has toe pain, but explains that he has already been seen for it and his primary concern is getting to [facility]. (RAJWINDER ABRAHAM) - Related Data Allergies/Adverse Reactions: Penicillins Allergy (Verified 10/30/16 23:51) chocolate Allergy (Uncoded 10/30/16 23:51) IVP DYE Allergy (Uncoded 10/30/16 23:51) pork Allergy (Uncoded 10/30/16 23:51) Past Medical History - General Information source: Patient - Social History Smoking Status: Unknown if Ever Smoked Family History: Reviewed & Not Pertinent, Other - mental illness Patient has suicidal ideation: No Patient has homicidal ideation: No Neurological Medical History: Reports: Hx Seizures Psychiatric Medical History: Reports: Hx Anxiety, Hx Bipolar Disorder, Hx Obsessive Compulsive Disorder Surgical Hx: Negative - Immunizations Hx Diphtheria, Pertussis, Tetanus Vaccination: No <RAJWINDER ABRAHAM - Last Filed: 10/31/16 00:09> Review of Systems - Review of Systems Constitutional: No symptoms reported EENT: No symptoms reported Cardiovascular: No symptoms reported Respiratory: No symptoms reported Gastrointestinal: No symptoms reported Genitourinary: No symptoms reported Male Genitourinary: No symptoms reported Musculoskeletal: See HPI, Other - left great toe pain Skin: No symptoms reported Hematologic/Lymphatic: No symptoms reported Neurological/Psychological: See HPI, Anxiety, Other - "extreme" paranoia. denies: Hallucinations - auditory or visual, Homicidal ideation, Suicidal ideation -: Yes All other systems reviewed and negative <RAJWINDER ABRAHAM - Last Filed: 10/31/16 00:09> Physical Exam - General General appearance: Alert In distress: None - HEENT Head: Normocephalic, Atraumatic Eyes: Normal Extraocular movements intact: Yes Pupils: PERRL - Respiratory Respiratory status: No respiratory distress - Cardiovascular Rhythm: Regular - Abdominal Inspection: Normal - Back Back: Normal - Extremities General upper extremity: Normal inspection, Normal ROM General lower extremity: Normal inspection, Normal ROM, Normal weight bearing - Neurological Neuro grossly intact: Yes Cognition: Normal Orientation: AAOx4 [place] Coma Scale Eye Opening: Spontaneous [place] Coma Scale Verbal: Oriented [place] Coma Scale Motor: Obeys Commands K[place] Coma Scale Total: 15 Speech: Normal - Psychological Associated symptoms: Anxious, Flight of ideas, Paranoid. No: Auditory hallucinations, Visual hallucinations - Skin Skin Temperature: Warm Skin Moisture: Dry Skin Color: Normal <RAJWINDER ABRAHAM - Last Filed: 10/31/16 00:09> <NANCY MCLEAN - Last Filed: 10/31/16 01:23> - Vital signs Vitals: Temp Pulse Resp BP Pulse Ox 98.2 F 118 H 16 136/87 H 97 10/30/16 23:48 10/30/16 23:48 10/30/16 23:48 10/30/16 23:48 10/30/16 23:48 (RAJWINDER ABRAHAM) (NANCY MCLEAN) Course <RAJWINDER ABRAHAM - Last Filed: 10/31/16 00:09> - Laboratory Result Diagrams: 10/31/16 00:35 10/31/16 00:35 <NANCY MCLEAN - Last Filed: 10/31/16 01:23> - Re-evaluation Re-evalutation: 10/31/16 01:22 Patient appears well. Denies any homicidal suicidal ideation. Denies hallucinations. Patient states that he has been very paranoid and feels that people are after him. Patient is medically stable. Will be given Zyprexa and evaluated by mental health morning. (NANCY MCLEAN) - Vital Signs Vital signs: Temp Pulse Resp BP Pulse Ox 98.2 F 118 H 16 136/87 H 97 10/30/16 23:48 10/30/16 23:48 10/30/16 23:48 10/30/16 23:48 10/30/16 23:48 (RAJWINDER ABRAHAM) (NANCY MCLEAN) - Laboratory Laboratory results interpreted by me: 10/31/16 10/31/16 00:35 00:35 WBC 12.6 H RDW 14.3 H Absolute Neutrophils 8.5 H Salicylates < 1.0 L Acetaminophen < 10 L (NANCY MCLEAN) Discharge <RAJWINDER ABRAHAM - Last Filed: 10/31/16 00:09> <NANCY MCLEAN - Last Filed: 10/31/16 01:23> - Discharge Clinical Impression: Paranoid disorder Condition: Stable Disposition: OTHER Referrals: STEVAN ATKINSON MD [Primary Care Provider] - Follow up as needed Scribe Attestation: 10/31/16 01:23 I personally performed the services described in the documentation, reviewed and edited the documentation which was dictated to the scribe in my presence, and it accurately records my words and actions. (NANCY MCLEAN) Scribe Documentation - Scribe Written by Etelvina:: Etelvina Portillo, 10/31/2016 00:27 acting as scribe for :: Aaron <RAJWINDER ABRAHAM - Last Filed: 10/31/16 00:09>
[2016-10-31 00:44] LABS: ABSOLUTE BASOPHILS # (AUTO) 0.1 10^3/uL (0.0-0.2); ABSOLUTE EOSINOPHILS # (AUTO) 0.1 10^3/uL (0.0-0.6); ABSOLUTE MONOCYTES (AUTO) 0.8 10^3/uL (0.1-1.4); ABSOLUTE NEUT (AUTO) 8.5 10^3/uL (1.7-8.2); BASOPHILS % (AUTO) 0.6 % (0-2); EOSINOPHILS % (AUTO) 1.1 % (0-6); HEMATOCRIT 42.5 % (37.9-51.0); HEMOGLOBIN 14.8 g/dL (13.5-17.0); HGB HCT DIFFERENCE 1.9; LYMPHOCYTES % (AUTO) 23.9 % (13-45); MEAN CORPUSCULAR HEMOGLOBIN 27.9 pg (27.0-33.4); MEAN CORPUSCULAR HGB CONC 34.7 g/dL (32.0-36.0); MEAN CORPUSCULAR VOLUME 80 fl (80-97); MONOCYTES % (AUTO) 6.4 % (3-13); RED BLOOD COUNT 5.29 10^6/uL (4.35-5.55); RED CELL DISTRIBUTION WIDTH 14.3 % (11.5-14.0); WHITE BLOOD COUNT 12.6 10^3/uL (4.0-10.5)
[2016-10-31 01:19] LABS: ALANINE AMINOTRANSFERASE 39 U/L (21-72); ALBUMIN 3.8 g/dL (3.5-5.0); ALKALINE PHOSPHATASE 74 U/L (38-126); ANION GAP 13 (5-19); ASPARTATE AMINO TRANSFERASE 20 U/L (17-59); BILIRUBIN,TOTAL 0.4 mg/dL (0.2-1.3); BLOOD UREA NITROGEN 17 mg/dL (7-20); CALCIUM 9.5 mg/dL (8.4-10.2); CARBON DIOXIDE 27 mmol/L (22-30); CHLORIDE 101 mmol/L (98-107); CREATININE RESULT 0.94 mg/dL (0.52-1.25); GLUCOSE 106 mg/dL (75-110); SODIUM 140.6 mmol/L (137-145); TOTAL PROTEIN 6.9 g/dL (6.3-8.2)
[2016-10-31 01:20] LABS: ALCOHOL < 10 mg/dL (NONE DETECTED)
[2016-10-31 01:58] LABS: APPEARANCE,URINE CLEAR; BILIRUBIN,URINE NEGATIVE (NEGATIVE); GLUCOSE, URINE NEGATIVE (NEGATIVE); KETONES,URINE NEGATIVE (NEGATIVE); LEUKOCYTE ESTERASE,URINE NEGATIVE (NEGATIVE); NITRITE,URINE NEGATIVE (NEGATIVE); PROTEIN,URINE NEGATIVE (NEGATIVE); URINE SPECIFIC GRAVITY 1.008; UROBILINOGEN,URINE NEGATIVE mg/dL (<2.0)
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
--- NOTE | 2016-10-31 10:19 | EKG REPORT ---
SEVERITY:- NORMAL ECG - SINUS RHYTHM : Confirmed by: Shmuel Fregoso 31-Oct-2016 10:18:22
--- NOTE | 2016-10-31 11:09 | ER Document Report ---
ED Psych Disorder / Suicide - General Chief Complaint: Psych Problem Stated Complaint: TOE INJURY Mode of Arrival: Medic TRAVEL OUTSIDE OF THE [place] IN LAST 30 DAYS: No - Related Data Allergies/Adverse Reactions: Penicillins Allergy (Verified 10/30/16 23:51) chocolate Allergy (Uncoded 10/30/16 23:51) IVP DYE Allergy (Uncoded 10/30/16 23:51) pork Allergy (Uncoded 10/30/16 23:51) Past Medical History - General Information source: Patient - Social History Smoking Status: Unknown if Ever Smoked Family History: Reviewed & Not Pertinent, Other - mental illness Patient has suicidal ideation: No Patient has homicidal ideation: No Neurological Medical History: Reports: Hx Seizures Psychiatric Medical History: Reports: Hx Anxiety, Hx Bipolar Disorder, Hx Obsessive Compulsive Disorder Surgical Hx: Negative - Immunizations Hx Diphtheria, Pertussis, Tetanus Vaccination: No Physical Exam - Vital signs Vitals: Temp Pulse Resp BP Pulse Ox 98.2 F 118 H 16 136/87 H 97 10/30/16 23:48 10/30/16 23:48 10/30/16 23:48 10/30/16 23:48 10/30/16 23:48 Course - Re-evaluation Re-evalutation: Patient is awake and alert. To this examiner he has no specific complaints at this time. PE: Cooperative, chest clear to auscultation bilaterally, breath sounds are equal moves extremities well. Speech is clear. He answers questions appropriately. Mental health has cleared him psychiatrically. No SI, HI or psychosis. Will DC home with outpatient psychiatric follow-up. - Vital Signs Vital signs: Temp Pulse Resp BP Pulse Ox 98.4 F 88 17 125/82 99 10/31/16 03:00 10/31/16 03:00 10/31/16 03:00 10/31/16 03:00 10/31/16 03:00 - Laboratory Result Diagrams: 10/31/16 00:35 10/31/16 00:35 Laboratory results interpreted by me: 10/31/16 10/31/16 00:35 00:35 WBC 12.6 H RDW 14.3 H Absolute Neutrophils 8.5 H Salicylates < 1.0 L Acetaminophen < 10 L Discharge - Discharge Clinical Impression: Paranoia Condition: Stable Disposition: OTHER Additional Instructions: DEPRESSION: Your evaluation reveals that you have mental depression. While symptoms may be vague, they often include disturbance of sleep, fatigue, loss of appetite , and general loss of interest in life. While depression may be a side effect of drugs, or a reaction to a major change in your life, many cases have no known cause. If depression is acute, and related to a major loss in your life, you can expect it to clear completely with time. If you have been depressed a long time , are prone to repeated bouts of depression or low mood, or have been thinking of suicide, get help. Depression can be treated with anti-depressant medication and counselling. Long-term depression will often take a few weeks to clear, even with appropriate medication. Follow-up care is important. SUICIDAL IDEATION: Suicidal ideation is a common medical term for thoughts about suicide, which may be as detailed as a formulated plan, without the suicidal act itself. Although most people who undergo suicidal ideation do not commit suicide, some go on to make suicide attempts. The range of suicidal ideation varies greatly from fleeting to detailed planning, role playing, and unsuccessful attempts. While thoughts about suicide are common, most people do not carry out serious actions to commit suicide. Based upon your evaluation and discussion with you, we do not believe you are currently at risk to act upon your thoughts of suicide. You have agreed to return to the Emergency Department, at any time , if you feel inclined to act upon your suicidal thoughts. FOLLOW-UP CARE: If you have been referred to a physician for follow-up care, call the physician s office for an appointment as you were instructed or within the next two days. If you experience worsening or a significant change in your symptoms, notify the physician immediately or return to the Emergency Department at any time for re-evaluation. Referrals: STEVAN ATKINSON MD [Primary Care Provider] - Follow up as needed
[2016-10-31 11:35] VITALS: BP 121/64
[2016-11-03 14:22] LABS: URINE BARBITURATES SCREEN NEGATIVE; URINE METHADONE SCREEN NEGATIVE; URINE PHENCYCLIDINE SCREEN NEGATIVE
== END 2016-10-31 11:35 | disposition other institution (70) ==
LOC: ER 23:32
DX: F22 Delusional disorders (principal); F41.9 Anxiety disorder, unspecified; F31.9 Bipolar disorder, unspecified; M79.675 Pain in left toe(s); Z88.0 Allergy status to penicillin; Z91.018 Allergy to other foods; Z91.041 Radiographic dye allergy status
CPT/HCPCS: 93005; 99285; 36415; 80307 ×4; 85025; 80053; 81001; 93010; A9270 ×2; J3490

== ENCOUNTER 2016-11-01 04:17 | Emergency (ER) | payer MEDICARE, MEDICAID ==
[2016-11-01] MEDS ORDERED: OLANZAPINE 5 MG TABLET PO ONE (04:26)
--- NOTE | 2016-11-01 04:32 | ER Document Report ---
ED General - General Stated Complaint: PSYCH EVAL Notes: Patient is a 31-year-old male who is well-known to me. She presents via name once because he was trying to obtain a ride to [facility]. Patient says recently strong odor [facility] was because it's he was unhappy with outpatient psychiatric therapy is receiving and he promised the vest finisher in August that he would continue his psychiatric treatment. He thought he better if he went to [facility] for this. He says currently feels well. He is doing well on the Zyprexa. His other concern was that he did not have his Zyprexa tonight and it is with his roommate. He wants to make sure he received this dose because he will not be able get his medications until the daytime. He says he has no further complaints. He says he otherwise feels well. He was seen by this psychiatrist on-call with the last 24 hours here. They did evaluate him. I did review the note he does have a history of chronic delusions and some neyda. Many has been under well control. They felt is not a danger to himself or others. Mr. Gallegos tells me himself that he actually feels well and does not want stay. He says he just wishes to receive his dose of Zyprexa. He denies any suicidal homicidal thoughts. He says he is able get his medications at the time. Has no other complaints and no further requests at this time. TRAVEL OUTSIDE OF THE [place] IN LAST 30 DAYS: No - Related Data Allergies/Adverse Reactions: Penicillins Allergy (Verified 10/30/16 23:51) chocolate Allergy (Uncoded 10/30/16 23:51) IVP DYE Allergy (Uncoded 10/30/16 23:51) pork Allergy (Uncoded 10/30/16 23:51) Past Medical History - Social History Smoking Status: Never Smoker Frequency of alcohol use: None Drug Abuse: None Family History: Reviewed & Not Pertinent, Other - mental illness Neurological Medical History: Reports: Hx Seizures Psychiatric Medical History: Reports: Hx Anxiety, Hx Bipolar Disorder, Hx Obsessive Compulsive Disorder - Immunizations Hx Diphtheria, Pertussis, Tetanus Vaccination: No Review of Systems - Review of Systems Notes: My Normal Review Basic REVIEW OF SYSTEMS: CONSTITUTIONAL : Denies fever, chills, or sweats. Denies recent illness. EENT: Denies eye, ear, throat, or mouth pain or symptoms. Denies nasal or sinus congestion. CARDIOVASCULAR: Denies chest pain. RESPIRATORY: Denies cough, cold, or chest congestion. Denies shortness of breath, difficulty breathing, or wheezing. GASTROINTESTINAL: Denies abdominal pain. Denies nausea, vomiting, or diarrhea. Denies constipation. Last BM: MUSCULOSKELETAL: Denies neck or back pain or joint pain or swelling. SKIN: Denies rash or skin lesions. NEUROLOGICAL: Denies altered mental status or loss of consciousness. Denies headache. Denies weakness or paralysis or loss of use of either side. Denies problems with gait or speech. Denies sensory or motor loss. PSYCHIATRIC: Denies anxiety or stress or depression. Has history of chronic delusions. ALL OTHER SYSTEMS REVIEWED AND NEGATIVE. Physical Exam - Notes Notes: General Appearance: Well nourished, alert, cooperative, no acute distress, no obvious discomfort. Well-appearing. Vitals: reviewed, See vital signs table. Head: no swelling or tenderness to the head Eyes: PERRL, EOMI, Conjuctiva clear Mouth: No decreasd moisture Lungs: No wheezing, No rales, No rhonci, No accessory muscle use, good air exchange bilaterally. Heart: Normal rate, Regular rythm, No murmur, no rub Abdomen: Normal BS, soft, No rigidity, No abdominal tenderness, No guarding, no rebound, no abdominal masses, no organomegaly Extremities: strength 5/5 in all extremities, good pulses in all extremities, no swelling or tenderness in the extremities, no edema. Skin: warm, dry, appropriate color, no rash Neuro: speech clear, oriented x 3, normal affect, responds appropriately to questions. Psychiatric: Patient is able stand topic and communicate well with me. He denies any suicidal homicidal ideations. No signs of neyda on this current visit. No signs of delusions or hallucinations currently. Course - Transfer of Care Notes: 11/01/16 04:30 I have taken care of the patient several times in the past. From a psychiatric standpoint, this is the best ever seen him. He typically is very manic and able to stay on topic. Tonight he is very calm and able to hold a normal conversation with me. He denies any delusions or hallucinations at this time. In speaking with him he does not express any delusions or hallucinations of concern to me. He denies any suicidal homicidal ideations. His main concern is receiving Zyprexa being that he cannot get to it again until daytime. He says he does not need a further prescription. I will give him a dose approximately here. Medical exam was seen no concerning physical findings of any unstable medical condition. At this time I feel he is safe to be discharged home. I encourage her to return to ER if he has any further concerns whatsoever as we are happy to take care of him. Patient is appreciative of this and will be discharged home. Dictation of this chart was performed using voice recognition software; therefore, there may be some unintended grammatical errors. Discharge - Discharge Clinical Impression: Bipolar 1 disorder Condition: Good Disposition: HOME, SELF-CARE Additional Instructions: Please feel free to return to the ER at any time if you feel any delusions, depression, are hearing voices, or if you feel that you are becoming hyper or manic. Please follow up with [facility] or [facility] for continued outpatient psychiatric care.
[2016-11-01 07:33] VITALS: BP 118/72
== END 2016-11-01 07:30 | disposition home or self-care (01) ==
LOC: ER 04:17
DX: F31.9 Bipolar disorder, unspecified (principal); Z79.899 Other long term (current) drug therapy; Z88.0 Allergy status to penicillin; Z91.018 Allergy to other foods; Z91.041 Radiographic dye allergy status
CPT/HCPCS: 99284; A9270

== ENCOUNTER 2016-11-04 16:51 | Emergency (ER) | payer MEDICARE, OTHER, MEDICAID ==
--- NOTE | 2016-11-04 17:02 | ER Document Report ---
ED Medical Screen (RME) - General Stated Complaint: PSYCH EVAL Notes: 31yo male with hx/o bipolar, schizo wants to reconnect with [facility] for treatment. pt has a social axiety /phobia. denies SI/HI. brought in by [facility]. TRAVEL OUTSIDE OF THE [place] IN LAST 30 DAYS: No - Related Data Allergies/Adverse Reactions: Penicillins Allergy (Verified 10/30/16 23:51) chocolate Allergy (Uncoded 10/30/16 23:51) IVP DYE Allergy (Uncoded 10/30/16 23:51) pork Allergy (Uncoded 10/30/16 23:51) Past Medical History Neurological Medical History: Reports: Hx Seizures Psychiatric Medical History: Reports: Hx Anxiety, Hx Attention Deficit Hyperactivity Disorder, Hx Bipolar Disorder, Hx Obsessive Compulsive Disorder - Immunizations Hx Diphtheria, Pertussis, Tetanus Vaccination: No Physical Exam - Vital signs Vitals: Temp Pulse Resp BP 97.9 F 105 H 20 125/56 L 11/04/16 16:55 11/04/16 16:55 11/04/16 16:55 11/04/16 16:55 Course - Vital Signs Vital signs: Temp Pulse Resp BP Pulse Ox 97.9 F 105 H 20 125/56 L 11/04/16 16:55 11/04/16 16:55 11/04/16 16:55 11/04/16 16:55
[2016-11-05 00:37] LABS: APPEARANCE,URINE CLEAR; BILIRUBIN,URINE NEGATIVE (NEGATIVE); GLUCOSE, URINE NEGATIVE (NEGATIVE); KETONES,URINE NEGATIVE (NEGATIVE); LEUKOCYTE ESTERASE,URINE NEGATIVE (NEGATIVE); NITRITE,URINE NEGATIVE (NEGATIVE); PROTEIN,URINE NEGATIVE (NEGATIVE); URINE SPECIFIC GRAVITY 1.029; UROBILINOGEN,URINE NEGATIVE mg/dL (<2.0)
--- NOTE | 2016-11-05 00:41 | ER Document Report ---
ED General - General Mode of Arrival: Ambulatory Information source: Patient TRAVEL OUTSIDE OF THE [place] IN LAST 30 DAYS: No <CHASE BARKER - Last Filed: 11/05/16 03:17> <NANCY MCLEAN - Last Filed: 11/05/16 05:54> - General Chief Complaint: Altered Mental Status Stated Complaint: PSYCH EVAL Notes: Patient is a 31 year old male presenting to the emergency department asking to go to "[place]." [facility]. Per triage nurse the patient was "speaking rapidly with flight of ideas and no suicidal ideation." Patient is sleeping in bed and does not awaken, therefore HPI, ROS, and PMHx is very limited. Patient has been to this facility multiple times and is currently homeless. (CHASE BARKER) - Related Data Allergies/Adverse Reactions: Penicillins Allergy (Verified 11/04/16 16:59) chocolate Allergy (Uncoded 11/04/16 16:59) IVP DYE Allergy (Uncoded 11/04/16 16:59) pork Allergy (Uncoded 11/04/16 16:59) Past Medical History - General Information source: [facility] - Social History Smoking Status: Current Every Day Smoker Chew tobacco use (# tins/day): No Frequency of alcohol use: None Drug Abuse: None Family History: Reviewed & Not Pertinent, Other - mental illness Patient has suicidal ideation: No Patient has homicidal ideation: No Neurological Medical History: Reports: Hx Seizures Renal/ Medical History: Denies: Hx Peritoneal Dialysis Psychiatric Medical History: Reports: Hx Anxiety, Hx Attention Deficit Hyperactivity Disorder, Hx Bipolar Disorder, Hx Obsessive Compulsive Disorder - Immunizations Hx Diphtheria, Pertussis, Tetanus Vaccination: No <CHASE BARKER - Last Filed: 11/05/16 03:17> Physical Exam - Vital signs Interpretation: Normal - General General appearance: Appears well, Alert - HEENT Head: Normocephalic, Atraumatic Eyes: Normal Pupils: PERRL - Respiratory Respiratory status: No respiratory distress Chest status: Nontender Breath sounds: Normal Chest palpation: Normal - Cardiovascular Rhythm: Regular Heart sounds: Normal auscultation Murmur: No - Abdominal Inspection: Normal Distension: No distension Bowel sounds: Normal Tenderness: Nontender Organomegaly: No organomegaly - Back Back: Normal, Nontender - Extremities General upper extremity: Normal inspection, Nontender, Normal color, Normal ROM , Normal temperature General lower extremity: Normal inspection, Nontender, Normal color, Normal ROM , Normal temperature, Normal weight bearing. No: Shala's sign - Neurological Neuro grossly intact: Yes Cognition: Normal Orientation: AAOx4 K[place] Coma Scale Eye Opening: Spontaneous [place] Coma Scale Verbal: Oriented Kav[place] Coma Scale Motor: Obeys Commands Kavita Coma Scale Total: 15 Speech: Normal Motor strength normal: LUE, RUE, LLE, RLE Sensory: Normal - Psychological Associated symptoms: Normal affect, Normal mood - Skin Skin Temperature: Warm Skin Moisture: Dry Skin Color: Normal <NANCY MCLEAN - Last Filed: 11/05/16 05:54> - Vital signs Vitals: Temp Pulse Resp BP 97.9 F 105 H 20 125/56 L 11/04/16 16:55 11/04/16 16:55 11/04/16 16:55 11/04/16 16:55 (CHASE BARKER) (NANCY MCLEAN) Course - Laboratory Result Diagrams: 11/05/16 01:03 11/05/16 01:03 <CHASE BARKER - Last Filed: 11/05/16 03:17> - Laboratory Result Diagrams: 11/05/16 01:03 11/05/16 01:03 <NANCY MCLEAN - Last Filed: 11/05/16 05:54> - Re-evaluation Re-evalutation: 11/05/16 05:27 Patient is been sleeping comfortably for most of the night. Patient has no complaints at this time. Patient apparently was brought in by [facility] for mental health evaluation. She is medically stable otherwise. Patient will be held for evaluation by mental health this morning. (NANCY MCLEAN) - Vital Signs Vital signs: Temp Pulse Resp BP Pulse Ox 97.9 F 105 H 20 125/56 L 11/04/16 16:55 11/04/16 16:55 11/04/16 16:55 11/04/16 16:55 (CHASE BARKER) (NANCY MCLEAN) - Laboratory Laboratory results interpreted by oh: 11/05/16 11/05/16 01:03 01:03 Hgb 13.1 L Hct 36.8 L RDW 14.3 H Glucose 116 H Total Protein 6.0 L Albumin 3.4 L Salicylates < 1.0 L Acetaminophen < 10 L (NANCY MCLEAN) Discharge <CHASE BARKER - Last Filed: 11/05/16 03:17> <NANCY MCLEAN - Last Filed: 11/05/16 05:54> - Discharge Clinical Impression: Paranoia Condition: Stable Disposition: OTHER Referrals: STEVAN ATKINSON MD [Primary Care Provider] - Follow up as needed Scribe Attestation: 11/05/16 05:54 I personally performed the services described in the documentation, reviewed and edited the documentation which was dictated to the scribe in my presence, and it accurately records my words and actions. (NANCY MCLEAN) Scribe Documentation <CHASE BARKER - Last Filed: 11/05/16 03:17> <NANCY MCLEAN - Last Filed: 11/05/16 05:54> - Scribe Written by Scribe:: NICK BINGHAM 11/05/16 0527 Acting as scribe for: Dr. Mclean (CHASE BARKER) (NANCY MCLEAN)
[2016-11-05 00:59] LABS: URINE BARBITURATES SCREEN NEGATIVE; URINE METHADONE SCREEN NEGATIVE; URINE PHENCYCLIDINE SCREEN NEGATIVE
[2016-11-05 01:15] LABS: ABSOLUTE BASOPHILS # (AUTO) 0.1 10^3/uL (0.0-0.2); ABSOLUTE EOSINOPHILS # (AUTO) 0.3 10^3/uL (0.0-0.6); ABSOLUTE LYMPHOCYTES (AUTO) 3.5 10^3/uL (0.5-4.7); ABSOLUTE MONOCYTES (AUTO) 0.6 10^3/uL (0.1-1.4); ABSOLUTE NEUT (AUTO) 5.5 10^3/uL (1.7-8.2); BASOPHILS % (AUTO) 0.8 % (0-2); HEMATOCRIT 36.8 % (37.9-51.0); HEMOGLOBIN 13.1 g/dL (13.5-17.0); HGB HCT DIFFERENCE 2.5; LYMPHOCYTES % (AUTO) 34.7 % (13-45); MEAN CORPUSCULAR HEMOGLOBIN 28.3 pg (27.0-33.4); MEAN CORPUSCULAR HGB CONC 35.5 g/dL (32.0-36.0); MEAN CORPUSCULAR VOLUME 80 fl (80-97); MONOCYTES % (AUTO) 6.4 % (3-13); RED BLOOD COUNT 4.62 10^6/uL (4.35-5.55); RED CELL DISTRIBUTION WIDTH 14.3 % (11.5-14.0); SEGMENTED NEUTROPHILS % (AUTO) 55.1 % (42-78)
[2016-11-05 01:37] LABS: ALANINE AMINOTRANSFERASE 22 U/L (21-72); ALBUMIN 3.4 g/dL (3.5-5.0); ALKALINE PHOSPHATASE 72 U/L (38-126); ANION GAP 12 (5-19); ASPARTATE AMINO TRANSFERASE 17 U/L (17-59); BILIRUBIN,TOTAL 0.3 mg/dL (0.2-1.3); BLOOD UREA NITROGEN 15 mg/dL (7-20); CALCIUM 9.2 mg/dL (8.4-10.2); CARBON DIOXIDE 25 mmol/L (22-30); CHLORIDE 107 mmol/L (98-107); CREATININE RESULT 0.78 mg/dL (0.52-1.25); GLUCOSE 116 mg/dL (75-110); POTASSIUM 3.7 mmol/L (3.6-5.0); SODIUM 143.9 mmol/L (137-145)
[2016-11-05 01:39] LABS: ALCOHOL < 10 mg/dL (NONE DETECTED)
[2016-11-05 06:18] VITALS: BP 119/73
--- NOTE | 2016-11-05 09:43 | EKG REPORT ---
SEVERITY:- NORMAL ECG - SINUS RHYTHM : Confirmed by: Litzy Olvera MD 05-Nov-2016 09:41:13
--- NOTE | 2016-11-05 10:33 | ER Document Report ---
Doctor's Note Notes: 11/05/16 10:32 Rounds: Chart reviewed and patient interview. Patient with a history of schizophrenia, bipolar type. Frequent visits to the emergency department for mental health issues, the most recent visit was just 3 days ago. Today, patient says he wants to be sent to [facility]. Vital signs are normal. Lab studies were normal except for being drug positive for marijuana. Patient appears to be medically stable for transfer or discharge. Patient has been evaluated by mental health feels that he can be discharged for outpatient follow -up at [facility]. Joana Moya M.D.
--- NOTE | 2016-11-05 11:19 | PSYCHOLOGICAL NOTE ---
Psych Note - Psych Note Psych Note: Pateint presented to [facility] ED stating he needs assistance with a ride [place] [facility]. This patient is well known to this clinician and apartment and has been to the ED multiple times within the last week requesting a ride to [facility]. Patient explained that he came to [facility] ED for assistance in receiving a ride to [facility]. He continued to disclose he is unable to take a [employer] because he's lost his ID. He states that his family refuses to give him a ride without him paying them. He continued disclose that he has been evicted from the place he was staying and his anxiety has increased because he has a fear of being around crowds of people. He states that the medication he received does nothing for his anxiety. Patient refuses outpatient services through [facility] because they "want to control his life." Patient continued disclosed that [facility] states they do not take his insurance. Patient is alert and orientated to person, place, time and circumstance. Patient's mood is euthymic with congruent affect. Patient denies suicidal and homicidal ideation. Patient currently is not demonstrating behavior indicative to responding to internal stimuli. Patient hasa a history of suffers from mixed type delusions; this is chronic for this patient; however, delusions noted do not cause harm to himself or others or impede ADLs. Thought process tangential. conversational speech is pressured. Eye contact was well maintained. Intellectual abilities appear to be within normal range. Attention and concentration are fair. Insight, judgment, impulse control are historically poor; however, he is able to successfully advocate for himself, and ensure self-care i.e. food, group home, getting dressed, bathing . 1. 296.40 (F31) Bipolar I Disorder, Unspecified 2. 305.20 (F12.10) Cannabis Use Disorder, Mild 3. R/O Anxiolytic, Benzodiazepine Use Disorder Patient is considered psychiatrically cleared for discharge. Patient suffers from mixed type delusions however this is a chronic condition for this patient is noted that delusions this patient promotes do not cause harm to himself and others or impede ADLs. It is noted that patient states he is not suicidal nor homicidal and that he has anxiety are groups of people and wanted to come in for a ride to [place]. This patient does not meet IVC criteria per [place] GS 122C ; he is at his baseline which includes elevated mood and tangential thoughts and is not a danger to himself or others. Care coordination referral has been submitted to [facility] for this patient. Dr. Ogden was consulted on this patient Patient is psychiatrically cleared for discharge; Attending physician is in agreement with recommendations and disposition.
== END 2016-11-05 10:50 | disposition home or self-care (01) ==
LOC: ER 16:51
DX: F20.9 Schizophrenia, unspecified (principal); F31.9 Bipolar disorder, unspecified; F17.200 Nicotine dependence, unspecified, uncomplicated; Z59.0 Homelessness; Z88.0 Allergy status to penicillin; Z91.018 Allergy to other foods; Z91.041 Radiographic dye allergy status
CPT/HCPCS: 36415; 80053; 80307; 81001; 85025; 93005; 93010; 99285

== ENCOUNTER 2016-11-09 17:19 | Emergency (ER) | payer MEDICARE, OTHER, MEDICAID ==
--- NOTE | 2016-11-09 17:47 | ER Document Report ---
ED Medical Screen (RME) - General Stated Complaint: PSYCH EVAL Notes: pt was recently d/c on 11/07 presents with suicidial ideations. states that if he couldnt go to [facility] that he would go try to walk on water and he cannot swim ? [facility] I have greeted and performed a rapid initial assessment of this patient. A comprehensive ED assessment and evaluation of the patient, analysis of test results and completion of the medical decision making process will be conducted by additional ED providers. TRAVEL OUTSIDE OF THE [place] IN LAST 30 DAYS: No - Related Data Allergies/Adverse Reactions: Penicillins Allergy (Verified 11/09/16 17:42) chocolate Allergy (Uncoded 11/09/16 17:42) IVP DYE Allergy (Uncoded 11/09/16 17:42) pork Allergy (Uncoded 11/09/16 17:42) Past Medical History Neurological Medical History: Reports: Hx Seizures Renal/ Medical History: Denies: Hx Peritoneal Dialysis Psychiatric Medical History: Reports: Hx Anxiety, Hx Attention Deficit Hyperactivity Disorder, Hx Bipolar Disorder, Hx Obsessive Compulsive Disorder - Immunizations Hx Diphtheria, Pertussis, Tetanus Vaccination: No
[2016-11-09 18:37] LABS: ABSOLUTE BASOPHILS # (AUTO) 0.1 10^3/uL (0.0-0.2); ABSOLUTE EOSINOPHILS # (AUTO) 0.1 10^3/uL (0.0-0.6); ABSOLUTE MONOCYTES (AUTO) 0.4 10^3/uL (0.1-1.4); ABSOLUTE NEUT (AUTO) 7.5 10^3/uL (1.7-8.2); BASOPHILS % (AUTO) 0.6 % (0-2); EOSINOPHILS % (AUTO) 0.7 % (0-6); HEMATOCRIT 41.9 % (37.9-51.0); HGB HCT DIFFERENCE 0.1; LYMPHOCYTES % (AUTO) 19.6 % (13-45); MEAN CORPUSCULAR HEMOGLOBIN 27.3 pg (27.0-33.4); MEAN CORPUSCULAR HGB CONC 33.3 g/dL (32.0-36.0); MEAN CORPUSCULAR VOLUME 82 fl (80-97); MONOCYTES % (AUTO) 3.9 % (3-13); RED BLOOD COUNT 5.12 10^6/uL (4.35-5.55); RED CELL DISTRIBUTION WIDTH 14.3 % (11.5-14.0); SEGMENTED NEUTROPHILS % (AUTO) 75.2 % (42-78)
[2016-11-09 19:05] LABS: ALANINE AMINOTRANSFERASE 25 U/L (21-72); ALBUMIN 4.2 g/dL (3.5-5.0); ALKALINE PHOSPHATASE 86 U/L (38-126); ANION GAP 11 (5-19); ASPARTATE AMINO TRANSFERASE 24 U/L (17-59); BILIRUBIN,TOTAL 0.3 mg/dL (0.2-1.3); BLOOD UREA NITROGEN 12 mg/dL (7-20); CALCIUM 9.4 mg/dL (8.4-10.2); CARBON DIOXIDE 28 mmol/L (22-30); CHLORIDE 103 mmol/L (98-107); CREATININE RESULT 0.84 mg/dL (0.52-1.25); GLUCOSE 86 mg/dL (75-110); SODIUM 142.4 mmol/L (137-145); TOTAL PROTEIN 7.5 g/dL (6.3-8.2)
[2016-11-09 19:08] LABS: ALCOHOL < 10 mg/dL (NONE DETECTED)
--- NOTE | 2016-11-09 21:44 | ER Document Report ---
ED Psych Disorder / Suicide - General Information source: Patient TRAVEL OUTSIDE OF THE U.S. IN LAST 30 DAYS: No - HPI Patient complains to provider of: Suicidal ideation Suicide Risk Factors: Bipolar, Depressed, Lack of social support, Male Similar symptoms previously: Yes Recently seen / treated by doctor: Yes - [facility] ED several times over the past few weeks <PASCALE IZAGUIRRE - Last Filed: 11/09/16 21:47> <LENKA CARTY - Last Filed: 11/10/16 05:05> - General Chief Complaint: Suicidal Ideation Stated Complaint: PSYCH EVAL Notes: Patient is a 31-year-old male presenting to the emergency department with concerns of suicidal ideation. Patient states he was brought here by [facility], and he was brought to [facility] by the police department after he showed up there threatening to take a handful of pills if he was not taken to [facility]. Patient states that he would take the pills to "go be with his friends" who he states are all now. Patient states that he is Zoroastrian, and he was recently discharged from [facility] on Oct 24, 2016, the last day of , because he states that if you are locked up on the last , it is very bad luck. Patient states that the travel writer told him to return to [place] if any of his delusions, anxiety, or suicidal ideation returned. Patient denies any homicidal ideation. Patient states that he is "fit as a fiddle" and "has lungs that will change the world" (speaking about his rapping) . (PASCALE IZAGUIRRE) - Related Data Allergies/Adverse Reactions: Penicillins Allergy (Verified 11/09/16 17:42) chocolate Allergy (Uncoded 11/09/16 17:42) IVP DYE Allergy (Uncoded 11/09/16 17:42) pork Allergy (Uncoded 11/09/16 17:42) Past Medical History - General Information source: Patient - Social History Smoking Status: Current Every Day Smoker Chew tobacco use (# tins/day): No Frequency of alcohol use: Social Drug Abuse: Marijuana Family History: Reviewed & Not Pertinent, Other - mental illness Patient has suicidal ideation: Yes Patient has homicidal ideation: No Neurological Medical History: Reports: Hx Seizures Psychiatric Medical History: Reports: Hx Anxiety, Hx Attention Deficit Hyperactivity Disorder, Hx Bipolar Disorder, Hx Obsessive Compulsive Disorder, Hx Post Traumatic Stress Disorder, Other - Autism - Immunizations Hx Diphtheria, Pertussis, Tetanus Vaccination: No <PASCALE IZAGUIRRE - Last Filed: 11/09/16 21:47> Review of Systems - Review of Systems Constitutional: No symptoms reported EENT: No symptoms reported Cardiovascular: No symptoms reported Respiratory: No symptoms reported Gastrointestinal: No symptoms reported Genitourinary: No symptoms reported Male Genitourinary: No symptoms reported Musculoskeletal: No symptoms reported Skin: No symptoms reported Hematologic/Lymphatic: No symptoms reported Neurological/Psychological: See HPI, Depression, Anxiety, Suicidal ideation, Other - Delusions <PASCALE IZAGUIRRE - Last Filed: 11/09/16 21:47> Physical Exam - General General appearance: Appears well, Alert - HEENT Head: Normocephalic, Atraumatic Eyes: Normal Pupils: PERRL - Respiratory Respiratory status: No respiratory distress Chest status: Nontender Breath sounds: Normal Chest palpation: Normal - Cardiovascular Rhythm: Regular Heart sounds: Normal auscultation Murmur: No - Abdominal Inspection: Normal Distension: No distension Bowel sounds: Normal Tenderness: Nontender Organomegaly: No organomegaly - Back Back: Normal, Nontender - Extremities General upper extremity: Normal inspection, Nontender, Normal color, Normal ROM , Normal temperature General lower extremity: Normal inspection, Nontender, Normal color, Normal ROM , Normal temperature - Neurological Neuro grossly intact: Yes Cognition: Normal Wann Coma Scale Eye Opening: Spontaneous Kavita Coma Scale Verbal: Oriented Wann Coma Scale Motor: Obeys Commands Wann Coma Scale Total: 15 Speech: Normal - Psychological Associated symptoms: Flight of ideas, Manic - Skin Skin Temperature: Warm Skin Moisture: Dry Skin Color: Normal <PASCALE IZAGUIRRE - Last Filed: 11/09/16 21:47> Course - Laboratory Result Diagrams: 11/09/16 18:20 11/09/16 18:20 <PASCALE IZAGUIRRE - Last Filed: 11/09/16 21:47> - Laboratory Result Diagrams: 11/09/16 18:20 11/09/16 18:20 <LENKA CARTY - Last Filed: 11/10/16 05:05> - Re-evaluation Re-evalutation: 11/10/16 05:02 Patient presents stating that he needs admission to [facility] for stabilization. Indicates that he has a diagnosis of bipolar and schizophrenia but he believes that he has ADHD and PTSD. He is in a manic phase with paranoid delusions stating that the [employer] and the police are coming after him. He denies any suicidal or homicidal ideations. He indicates that he only takes trazodone and Valium. It does not appear that he is currently taking any mood stabilizers. Patient is very pleasant. Vital signs are stable. There are no medical issues at present. Based on my clinical evaluation I do not feel there are any urgent medical issues requiring emergent intervention other than his psychiatric presentation. Patient will be evaluated by psychiatry in the morning. Patient is resting comfortably without any issues. I have signed out the patient to Dr. Marco Luo at 5pm at the end of my shift. (LENKA CARTY) - Vital Signs Vital signs: Temp Pulse Resp BP Pulse Ox 97.8 F 81 16 113/71 99 11/09/16 22:46 11/09/16 22:46 11/10/16 00:00 11/09/16 22:46 11/09/16 22:46 (LENKA CARTY) - Laboratory Laboratory results interpreted by me: 11/09/16 11/09/16 18:20 18:20 RDW 14.3 H Salicylates < 1.0 L Acetaminophen < 10 L (PASCALE IZAGUIRRE) (LENKA CARTY) Discharge <PASCALE IZAGUIRRE - Last Filed: 11/09/16 21:47> <LENKA CARTY - Last Filed: 11/10/16 05:05> - Discharge Clinical Impression: Schizophrenia Qualifiers: Schizophrenia type: paranoid schizophrenia Qualified Code(s): F20.0 - Paranoid schizophrenia Condition: Stable Disposition: PSYCH HOSP/UNIT Scribe Attestation: 11/10/16 05:02 I personally performed the services described in the documentation, reviewed and edited the documentation which was dictated to the scribe in my presence, and it accurately records my words and actions. (LENKA CARTY) Scribe Documentation <PASCALE IZAGUIRRE - Last Filed: 11/09/16 21:47> <LENKA CARTY - Last Filed: 11/10/16 05:05> - Scribe Written by Scribe:: LENKA CARTY MD, SCRIBE 11/10/16 0501 Acting as scribe for: PASCALE Alas) (LENKA CARTY)
[2016-11-10 07:57] LABS: APPEARANCE,URINE CLEAR; BILIRUBIN,URINE NEGATIVE (NEGATIVE); GLUCOSE, URINE NEGATIVE (NEGATIVE); KETONES,URINE NEGATIVE (NEGATIVE); LEUKOCYTE ESTERASE,URINE NEGATIVE (NEGATIVE); NITRITE,URINE NEGATIVE (NEGATIVE); PROTEIN,URINE NEGATIVE (NEGATIVE); URINE SPECIFIC GRAVITY 1.019; UROBILINOGEN,URINE NEGATIVE mg/dL (<2.0)
--- NOTE | 2016-11-10 07:58 | EKG REPORT ---
SEVERITY:- OTHERWISE NORMAL ECG - SINUS TACHYCARDIA : Confirmed by: Mejia Kasper MD 10-Nov-2016 07:58:14
[2016-11-10 08:03] LABS: URINE BARBITURATES SCREEN NEGATIVE; URINE METHADONE SCREEN NEGATIVE; URINE PHENCYCLIDINE SCREEN NEGATIVE
--- NOTE | 2016-11-10 10:11 | PSYCHOLOGICAL NOTE ---
Psych Note - Psych Note Psych Note: Patient is a 31 year old male who presented as a walk in requesting transportation to [facility] in [place]. Patient is well known to this clinician and this Department for multiple prior episodes. Specifically, the patient was seen 13 times since July 2015 psychiatric related c/o. Patient this morning states he needs to go to [facility], that he was there before and they helped him. Patient states he is misdiagnosed and is not Bipolar, instead , he has ADHD and PTSD. Patient states he does not need to be discharged, because if he is he "will be thrown to the wolves." Patient states yesterday he was having racing thoughts and thoughts about hurting himself. Patient states he does not want to hurt himself, but needs help. Patient states he needs to go to [facility] because there is a doctor there with the "holy grails of medications." Patient states he has been unable to secure his belongings from the home where he was evicted from, and does not have his wallet , only has one change of clothing, etc. Patient maintains that he has been compliant with his daily medications. Patient states he needs to go to [facility], and then go to his court date the end of the month, and then he plans to move back to [place]. Patient states he receives disability and will use those dollars to do so. Patient is A&O. Mood is elevated with congruent affect. Patient denies suicidal /homicidal ideations, intent, plan, or means. Patient denies A/V H; delusions not noted. Thought processes were goal oriented towards going to [facility]. Conversational speech was rapid and pressured, which for this patient is baseline. Intellectual abilities were estimated within low average range. Attention and focus were poor. Insight, judgment, and impulse control were poor. 1. 296.40 (F31) Bipolar I Disorder, Unspecified 2. 305.20 (F12.10) Cannabis Use Disorder, Mild 3. R/O Anxiolytic, Benzodiazepine Use Disorder Patient is psychiatrically cleared and recommended for discharge. Patient would like to pursue voluntary treatment at [facility] and was provided the necessary resources to do so. Patient does not meet criteria for involuntary commitment for the following reasons: Patient is functioning at his baseline, which include elevated/manic mood and bizarre thoughts and statements Patient is denying suicidal/homicidal ideations, intent, plan, means Patient is denying command hallucinations telling him to harm himself or harm others Patient is encouraged to follow-up with his outpatient provider for continued medication management. Patient states he has his prescriptions, and does not need any bridge scripts. Patient maintains he has been taking his medications. Patient reports he does not wish to present to the homeless intermediate, but was encouraged to do so should he not go to [facility] as he desires. Discussed with patient that he does not meet involuntary commitment criteria. Encourage patient to engage in community service programs to assist him with housing, his mental health needs, etc. Patient reports he plans to leave the state in [address] Patient declined to state what his court date was regarding, but says it has something to do with his eviction. I consulted with Dr. Ogden in regards to the care and management of this patient. GUSTAVO Bejarano is in agreement with disposition and recommendations.
--- NOTE | 2016-11-10 13:15 | ER Document Report ---
Doctor's Note Notes: 11/10/16 13:14 Rounds: Chart reviewed and patient interviewed. Patient has expressed some suicidal thoughts. History of bipolar disorder. Vital signs are normal. All admission labs were normal. Patient is medically stable for transfer or discharge. Mental health has assessed the patient feels he can be discharged for outpatient follow-up at [facility] after his discharge from the emergency department. Joana Moya M.D.
[2016-11-10 13:40] VITALS: BP 127/74
== END 2016-11-10 13:35 | disposition home or self-care (01) ==
LOC: ER 17:19
DX: F20.0 Paranoid schizophrenia (principal); F31.70 Bipolar disorder, currently in remission, most recent episode unspecified; F41.9 Anxiety disorder, unspecified; R45.851 Suicidal ideations; F17.200 Nicotine dependence, unspecified, uncomplicated; Z88.0 Allergy status to penicillin; Z91.018 Allergy to other foods; Z91.041 Radiographic dye allergy status
CPT/HCPCS: 36415; 80053; 80307; 81001; 85025; 93005; 93010; 99285

== ENCOUNTER 2016-12-02 18:55 | Emergency (ER) | payer MEDICARE, MEDICAID ==
[2016-12-02 20:22] LABS: APPEARANCE,URINE SLIGHTLY-CLOUDY; BILIRUBIN,URINE NEGATIVE (NEGATIVE); GLUCOSE, URINE NEGATIVE (NEGATIVE); KETONES,URINE NEGATIVE (NEGATIVE); LEUKOCYTE ESTERASE,URINE NEGATIVE (NEGATIVE); NITRITE,URINE NEGATIVE (NEGATIVE); PROTEIN,URINE NEGATIVE (NEGATIVE); URINE SPECIFIC GRAVITY 1.032
[2016-12-02 20:38] LABS: URINE BARBITURATES SCREEN NEGATIVE; URINE METHADONE SCREEN NEGATIVE; URINE OPIATES LOW NEGATIVE; URINE PHENCYCLIDINE SCREEN NEGATIVE
[2016-12-02 20:39] LABS: ABSOLUTE BASOPHILS # (AUTO) 0.1 10^3/uL (0.0-0.2); ABSOLUTE EOSINOPHILS # (AUTO) 0.3 10^3/uL (0.0-0.6); ABSOLUTE LYMPHOCYTES (AUTO) 2.2 10^3/uL (0.5-4.7); ABSOLUTE MONOCYTES (AUTO) 0.7 10^3/uL (0.1-1.4); ABSOLUTE NEUT (AUTO) 5.6 10^3/uL (1.7-8.2); BASOPHILS % (AUTO) 1.1 % (0-2); EOSINOPHILS % (AUTO) 3.9 % (0-6); HEMATOCRIT 41.3 % (37.9-51.0); HEMOGLOBIN 14.3 g/dL (13.5-17.0); HGB HCT DIFFERENCE 1.6; LYMPHOCYTES % (AUTO) 24.6 % (13-45); MEAN CORPUSCULAR HEMOGLOBIN 27.9 pg (27.0-33.4); MEAN CORPUSCULAR HGB CONC 34.6 g/dL (32.0-36.0); MEAN CORPUSCULAR VOLUME 81 fl (80-97); MONOCYTES % (AUTO) 8.3 % (3-13); RED BLOOD COUNT 5.12 10^6/uL (4.35-5.55); RED CELL DISTRIBUTION WIDTH 14.1 % (11.5-14.0); SEGMENTED NEUTROPHILS % (AUTO) 62.1 % (42-78)
[2016-12-02 21:01] LABS: ALANINE AMINOTRANSFERASE 24 U/L (21-72); ALBUMIN 4.3 g/dL (3.5-5.0); ALCOHOL < 10 mg/dL (NONE DETECTED); ALKALINE PHOSPHATASE 79 U/L (38-126); ANION GAP 10 (5-19); ASPARTATE AMINO TRANSFERASE 18 U/L (17-59); BILIRUBIN,TOTAL 0.6 mg/dL (0.2-1.3); BLOOD UREA NITROGEN 17 mg/dL (7-20); CALCIUM 9.7 mg/dL (8.4-10.2); CARBON DIOXIDE 26 mmol/L (22-30); CHLORIDE 104 mmol/L (98-107); CREATININE RESULT 0.89 mg/dL (0.52-1.25); GLUCOSE 79 mg/dL (75-110); POTASSIUM 4.3 mmol/L (3.6-5.0); SODIUM 140.3 mmol/L (137-145); TOTAL PROTEIN 7.3 g/dL (6.3-8.2)
--- NOTE | 2016-12-03 03:33 | ER Document Report ---
ED General - General Chief Complaint: Suicidal Ideation Stated Complaint: SUICIDAL IDEATION Notes: Patient is a 31-year-old male with past medical history of anxiety, depression, prior suicide attempts and frequent visits to the emergency department for suicidal ideation who presents with suicidal ideation with plan to overdose on his medications. States he told a worker at the homeless nursing home today that he wanted to kill himself and she referred him to the emergency department. He states that his symptoms worsened by his current life situation. States his medications do not help. Denies access to a firearm. No visual or auditory hallucinations. Denies any drug or alcohol abuse TRAVEL OUTSIDE OF THE U[place] IN LAST 30 DAYS: No - Related Data Allergies/Adverse Reactions: Penicillins Allergy (Verified 11/09/16 17:42) chocolate Allergy (Uncoded 11/09/16 17:42) IVP DYE Allergy (Uncoded 11/09/16 17:42) pork Allergy (Uncoded 11/09/16 17:42) Past Medical History - General Information source: Patient - Social History Smoking Status: Current Every Day Smoker Frequency of alcohol use: None Drug Abuse: None Lives with: Homeless Family History: Reviewed & Not Pertinent, Other - mental illness Neurological Medical History: Reports: Hx Seizures Renal/ Medical History: Denies: Hx Peritoneal Dialysis Psychiatric Medical History: Reports: Hx Anxiety, Hx Attention Deficit Hyperactivity Disorder, Hx Bipolar Disorder, Hx Obsessive Compulsive Disorder, Hx Post Traumatic Stress Disorder - Immunizations Hx Diphtheria, Pertussis, Tetanus Vaccination: No Review of Systems - Review of Systems Notes: Constitutional: Negative for fever. HENT: Negative for sore throat. Eyes: Negative for visual changes. Cardiovascular: Negative for chest pain. Respiratory: Negative for shortness of breath. Gastrointestinal: Negative for abdominal pain, vomiting or diarrhea. Genitourinary: Negative for dysuria. Musculoskeletal: Negative for back pain. Skin: Negative for rash. Neurological: Negative for headaches, weakness or numbness. 10 point ROS negative except as marked above and in HPI. Physical Exam - Vital signs Vitals: Temp Pulse Resp BP Pulse Ox 98.4 F 88 18 140/70 H 100 12/02/16 19:45 12/02/16 19:45 12/02/16 19:45 12/02/16 19:45 12/02/16 19:45 Interpretation: Hypertensive Notes: PHYSICAL EXAMINATION: GENERAL: Well-appearing, well-nourished and in no acute distress. HEAD: Atraumatic, normocephalic. EYES: Pupils equal round and reactive to light, extraocular movements intact, sclera anicteric, conjunctiva are normal. ENT: nares patent, oropharynx clear without exudates. Moist mucous membranes. NECK: Normal range of motion, supple without lymphadenopathy LUNGS: Breath sounds clear to auscultation bilaterally and equal. No wheezes rales or rhonchi. HEART: Regular rate and rhythm without murmurs ABDOMEN: Soft, nontender, normoactive bowel sounds. No guarding, no rebound. No masses appreciated. EXTREMITIES: Normal range of motion, no pitting or edema. No cyanosis. NEUROLOGICAL: No focal neurological deficits. Moves all extremities spontaneously and on command. PSYCH: Blunted mood. Poor eye contact. SKIN: Warm, Dry, normal turgor, no rashes or lesions noted. Course - Re-evaluation Re-evalutation: 12/03/16 03:29 Patient presents complaining of suicidal ideation with plan to kill himself by overdose on his medications. States he is still suicidal at this time. He is a frequent visitor to our emergency department and often complains of suicidal ideation. However, given his active expression of ongoing suicidal intent as well as the plan will place on IVC and have him evaluated by her psychiatric team in the morning. His medical screening exam is unremarkable. Screening labs likewise unremarkable. He is cleared for evaluation by psychiatry. - Vital Signs Vital signs: Temp Pulse Resp BP Pulse Ox 98.4 F 88 20 140/70 H 100 12/02/16 19:45 12/02/16 19:45 12/02/16 20:00 12/02/16 19:45 12/02/16 19:45 - Laboratory Result Diagrams: 12/02/16 20:25 12/02/16 20:25 Laboratory results interpreted by me: 12/02/16 12/02/16 12/02/16 20:10 20:25 20:25 RDW 14.1 H Urine Urobilinogen 2.0 H Salicylates < 1.0 L Acetaminophen < 10 L - EKG Interpretation by Me Additional EKG results interpreted by me: 12/03/16 03:31 Normal sinus rhythm. Rate 72. No ST elevations or depressions. QTC 432. Discharge - Discharge Clinical Impression: Suicidal ideation Schizophrenia Qualifiers: Schizophrenia type: unspecified Qualified Code(s): F20.9 - Schizophrenia, unspecified Condition: Good Disposition: PSYCH HOSP/UNIT
--- NOTE | 2016-12-03 08:13 | EKG REPORT ---
SEVERITY:- NORMAL ECG - SINUS RHYTHM : Confirmed by: Mejia Kasper MD 03-Dec-2016 08:12:34
--- NOTE | 2016-12-03 09:28 | ER Document Report ---
Doctor's Note Notes: 12/03/16 09:26 Rounds: Chart reviewed and patient interviewed. Patient has a history of depression, anxiety, PTSD, and is being evaluated for suicidal ideation. The patient uses the term "suicidal ideation was "as he is seemingly well versed in the vocabulary. This is this patient's fourth visit in 4 weeks for psychiatric evaluation and his 12th visit in the last 15 months for same. [facility] is homeless and [facility]. Vital signs are all normal. Patient appears to be medically stable for transfer or discharge. Joana Moya M.D.
--- NOTE | 2016-12-03 11:02 | PSYCHOLOGICAL NOTE ---
Psych Note - Psych Note Psych Note: Patient presented to [facility] with a past medical history of anxiety, depression, prior suicide attempts and frequent visits to the emergency department for suicidal ideation who presents with suicidal ideation with plan to overdose on his medications. States he told a worker [facility] the homeless [facility] today that he wanted to kill himself and she referred him to the emergency department. He states that his symptoms worsened by his current life situation. States his medications do not help. The patient states that he [facility] a bed [facility] the [facility] currently and they have been helping him find housing. He continued to disclose that he is also attempting to obtain a new ID and since he has no current ID he has ran into difficulties. He stated it was very stressful yesterday with all that and then his bank told him he could not withdrawal any money from his account without an ID or debit card; he is waiting for his debit card to come in the mail. He stated that he started to think of all the stressors and thought " things are really hard why don't I just kill myself." Patient states that his plan was to take all of his medication. He continued to state that he does feel better today however is concerned that his medication is making him feel this way. Patient is alert and orientated to person, place, time and circumstance. Mood is euthimic with congruent affect. Patient endorses suicidal ideation stating that his increasing for the last 2 months. Patient denies homicidal ideation; no delusions are currently being expressed. Thought process is organized and linear. Conversational speech was within normal rate tone and prosody. Eye contact maintained. Intellectual abilities appear to be low average range. Attention and concentration are fair. Insight, judgment, impulse control are fair. 1. 296.40 (F31) Bipolar I Disorder, Unspecified 2. 305.20 (F12.10) Cannabis Use Disorder, Mild 3. R/O Anxiolytic, Benzodiazepine Use Disorder Impression/plan: Patient is recommended for rescind of IVC cleared for discharge. Patient is well known in this department and clinician. Patient is currently experiencing stress due to addressing multiple situational difficulties; however, patient has many supports in place to assist with. Clinician will contact [facility] to make a referral for community care transition assistance. While patient discloses suicidal ideation, intent is questionable because patient has demonstrated difficulties communicating his thoughts and feels so states suicidal ideation so others understand the level of stress he is currently feeling. This patient does not meet IVC criteria per [place] GS 122C; he is at his baseline which includes elevated mood and tangential thoughts and is not a danger to himself or others. Dr. Ogden was consulted on this patient Patient is psychiatrically cleared for discharge; Attending physician is in agreement with recommendations and disposition.
[2016-12-03 12:18] VITALS: BP 105/66
== END 2016-12-03 12:18 | disposition home or self-care (01) ==
LOC: ER 18:55
DX: R45.851 Suicidal ideations (principal); F20.9 Schizophrenia, unspecified; F17.200 Nicotine dependence, unspecified, uncomplicated; Z91.5 Personal history of self-harm; Z88.0 Allergy status to penicillin; Z91.018 Allergy to other foods; Z91.041 Radiographic dye allergy status; Z59.0 Homelessness
CPT/HCPCS: 36415; 80053; 80307; 81001; 85025; 93005; 93010; 99285

== ENCOUNTER 2018-06-08 14:24 | Emergency (ER) | payer MEDICARE, MEDICAID ==
--- NOTE | 2018-06-08 15:02 | ER Document Report ---
ED Psych Disorder / Suicide - General Mode of Arrival: Ambulatory Information source: Patient TRAVEL OUTSIDE OF THE [place] IN LAST 30 DAYS: No <ENMANUEL JUAN - Last Filed: 06/08/18 14:58> <WESTON KWON - Last Filed: 06/09/18 08:01> <CHARLEY COX - Last Filed: 06/09/18 09:47> - General Chief Complaint: Psych Problem Stated Complaint: PSYCH EVAL Time Seen by Provider: 06/08/18 14:58 Notes: Chief complaint: Suicidal History of complain:( obtained from----patient) 32 years old male presents today with suicidal ideation, thoughts, anxiety. With a previous history of suicidal ideation as well as anxiety. Not been taking any medications. States that last 6 months he did not have any thoughts of that are similar. He says he is depressed because he lost his job and . No alcohol abuse. Denies any drug abuse. Flights of thoughts Onset: As above Duration: Last few days Severity: Moderate Quality: As above Context: As above Exacerbating factor and relieving factors: REVIEW OF SYSTEMS: CONSTITUTIONAL : Denies fever, chills, or sweats. Denies recent illness. EENT: Denies eye, ear, throat, or mouth pain or symptoms. Denies nasal or sinus congestion or discharge. Denies throat, tongue, or mouth swelling or difficulty swallowing. CARDIOVASCULAR: Denies chest pain. Denies palpitations or racing or irregular heart beat. Denies ankle edema. RESPIRATORY: Denies cough, cold, or chest congestion. Denies shortness of breath, difficulty breathing, or wheezing. GASTROINTESTINAL: Denies distention. Denies nausea, vomiting, or diarrhea. Denies blood in vomitus, stools, or per rectum. Denies black, tarry stools. Denies constipation. GENITOURINARY: Denies difficulty urinating, painful urination, burning, frequency, blood in urine, or discharge. FEMALE GENITOURINARY: Denies vaginal bleeding, heavy or abnormal periods, irregular periods. Denies vaginal discharge or odor. MUSCULOSKELETAL: Denies back or neck pain or stiffness. Denies joint pain or swelling. SKIN: Denies rash, lesions or sores. HEMATOLOGIC : Denies easy bruising or bleeding. LYMPHATIC: Denies swollen, enlarged glands. NEUROLOGICAL: Denies confusion or altered mental status. Denies passing out or loss of consciousness. Denies dizziness or lightheadedness. Denies headache. Denies weakness or paralysis or loss of use of either side. Denies problems with gait or speech. Denies sensory loss, numbness, or tingling. Denies seizures. PSYCHIATRIC: Denies anxiety or stress. Denies depression, suicidal ideation, or homicidal ideation. ALL OTHER SYSTEMS REVIEWED AND NEGATIVE. PHYSICAL EXAMINATION: GENERAL: Well-appearing, well-nourished and in no acute distress. HEAD: Atraumatic, normocephalic. EYES: Pupils equal round and reactive to light, extraocular movements intact, conjunctiva are normal. ENT: Nares patent, oropharynx clear without exudates. Moist mucous membranes. NECK: Normal range of motion, supple without lymphadenopathy LUNGS: Breath sounds clear to auscultation bilaterally and equal. No wheezes rales or rhonchi. HEART: Regular rate and rhythm without murmurs ABDOMEN: Soft, nontender, nondistended abdomen. No guarding, no rebound. No masses appreciated. Examination of genitals-deferred Musculoskeletal: Normal range of motion, no pitting or edema. No cyanosis. NEUROLOGICAL: Cranial nerves grossly intact. Normal speech, normal gait. Normal sensory, motor exams PSYCH: Suicidal ideation, not appear to be depressed. No auditory or visual hallucinations. SKIN: Warm, Dry, normal turgor, no rashes or lesions noted. Dictation was performed using [employer] voice recognition software (ENMANUEL JUAN) - [facility] Notes: Dictated (ENMANUEL JUAN) - Related Data Allergies/Adverse Reactions: Penicillins Allergy (Verified 06/08/18 14:25) chocolate Allergy (Uncoded 06/08/18 14:25) IVP DYE Allergy (Uncoded 06/08/18 14:25) pork Allergy (Uncoded 06/08/18 14:25) Past Medical History - Social History Smoking Status: Current Every Day Smoker Frequency of alcohol use: Rare Drug Abuse: None Family History: Reviewed & Not Pertinent, Other - mental illness Patient has suicidal ideation: Yes Patient has homicidal ideation: No Neurological Medical History: Reports: Hx Seizures Renal/ Medical History: Denies: Hx Peritoneal Dialysis Psychiatric Medical History: Reports: Hx Anxiety, Hx Attention Deficit Hyperactivity Disorder, Hx Bipolar Disorder, Hx Obsessive Compulsive Disorder, Hx Post Traumatic Stress Disorder - Immunizations Hx Diphtheria, Pertussis, Tetanus Vaccination: No <ENMANUEL JUAN - Last Filed: 06/08/18 14:58> Review of Systems <ENAMNUEL JUAN - Last Filed: 06/08/18 14:58> <WESTON KWON - Last Filed: 06/09/18 08:01> <CHARLEY COX - Last Filed: 06/09/18 09:47> - Review of Systems Notes: Dictated (ENMANUEL JUAN) Physical Exam <ENMANUEL JUAN - Last Filed: 06/08/18 14:58> <WESTON KWON - Last Filed: 06/09/18 08:01> <CHARLEY COX - Last Filed: 06/09/18 09:47> - Vital signs Vitals: Temp Pulse Resp BP Pulse Ox 98.1 F 103 H 18 121/81 96 06/08/18 14:27 06/08/18 14:27 06/08/18 14:27 06/08/18 14:27 06/08/18 14:27 - Notes Notes: Dictated (ENMANUEL JUAN) Course - Laboratory Result Diagrams: 06/08/18 15:36 06/08/18 15:36 <WESTON KWON - Last Filed: 06/09/18 08:01> - Laboratory Result Diagrams: 06/08/18 15:36 06/08/18 15:36 <CHARLEY COX - Last Filed: 06/09/18 09:47> - Vital Signs Vital signs: Temp Pulse Resp BP Pulse Ox 97.9 F 96 18 118/78 100 06/09/18 07:31 06/09/18 07:31 06/09/18 07:31 06/09/18 07:31 06/09/18 07:31 - Laboratory Laboratory results interpreted by me: 06/08/18 06/08/18 06/08/18 15:36 15:36 15:36 WBC 13.7 H RBC 5.83 H MCV 78 L MCH 26.8 L RDW 16.2 H Absolute Neutrophils 9.8 H Total Protein 8.5 H Urine Protein 30 H Urine Ketones TRACE H Urine Urobilinogen 4.0 H Salicylates < 1.0 L Acetaminophen < 10 L Discharge <ENMANUEL JUAN - Last Filed: 06/08/18 14:58> <WESTON KWON - Last Filed: 06/09/18 08:01> <CHARLEY COX - Last Filed: 06/09/18 09:47> - Discharge Clinical Impression: Passive suicidal ideations, Anxiety Condition: Stable Disposition: HOME, SELF-CARE Additional Instructions: You have been evaluated by both medical and the behavioral health teams and have been deemed appropriate for discharge. Please continue with your previously scheduled appointment with [facility] on 13 June. You have been prescribed medication, BuSpar 5 mg twice daily; please take as directed. DEPRESSION: Your evaluation reveals that you have mental depression. While symptoms may be vague, they often include disturbance of sleep, fatigue, loss of appetite , and general loss of interest in life. While depression may be a side effect of drugs, or a reaction to a major change in your life, many cases have no known cause. If depression is acute, and related to a major loss in your life, you can expect it to clear completely with time. If you have been depressed a long time , are prone to repeated bouts of depression or low mood, or have been thinking of suicide, get help. Depression can be treated with anti-depressant medication and counselling. Long-term depression will often take a few weeks to clear, even with appropriate medication. Follow-up care is important. SUICIDAL IDEATION: Suicidal ideation is a common medical term for thoughts about suicide, which may be as detailed as a formulated plan, without the suicidal act itself. Although most people who undergo suicidal ideation do not commit suicide, some go on to make suicide attempts. The range of suicidal ideation varies greatly from fleeting to detailed planning, role playing, and unsuccessful attempts. While thoughts about suicide are common, most people do not carry out serious actions to commit suicide. Based upon your evaluation and discussion with you, we do not believe you are currently at risk to act upon your thoughts of suicide. You have agreed to return to the Emergency Department, at any time , if you feel inclined to act upon your suicidal thoughts. FOLLOW-UP CARE: If you experience worsening or a significant change in your symptoms, notify the physician immediately or return to the Emergency Department at any time for re-evaluation. Prescriptions: Buspirone HCl [Buspar 5 mg Tablet] 1 tab PO BID #10 tab Referrals: [facility] [Outside] - 06/13/18
[2018-06-08 16:25] LABS: ABSOLUTE BASOPHILS # (AUTO) 0.1 10^3/uL (0.0-0.2); ABSOLUTE EOSINOPHILS # (AUTO) 0.3 10^3/uL (0.0-0.6); ABSOLUTE LYMPHOCYTES (AUTO) 2.8 10^3/uL (0.5-4.7); ABSOLUTE MONOCYTES (AUTO) 0.8 10^3/uL (0.1-1.4); ABSOLUTE NEUT (AUTO) 9.8 10^3/uL (1.7-8.2); BASOPHILS % (AUTO) 0.5 % (0-2); EOSINOPHILS % (AUTO) 2.2 % (0-6); HEMATOCRIT 45.3 % (37.9-51.0); HEMOGLOBIN 15.6 g/dL (13.5-17.0); LYMPHOCYTES % (AUTO) 20.1 % (13-45); MEAN CORPUSCULAR HEMOGLOBIN 26.8 pg (27.0-33.4); MEAN CORPUSCULAR HGB CONC 34.5 g/dL (32.0-36.0); MEAN CORPUSCULAR VOLUME 78 fl (80-97); MONOCYTES % (AUTO) 5.5 % (3-13); PLATELET COUNT 314 10^3/uL (150-450); RED BLOOD COUNT 5.83 10^6/uL (4.35-5.55); RED CELL DISTRIBUTION WIDTH 16.2 % (11.5-14.0); SEGMENTED NEUTROPHILS % (AUTO) 71.7 % (42-78); TOTAL CELLS COUNTED % (AUTO) 100 %; WHITE BLOOD COUNT 13.7 10^3/uL (4.0-10.5)
[2018-06-08 16:31] LABS: APPEARANCE,URINE SLIGHTLY-CLOUDY; BILIRUBIN,URINE NEGATIVE (NEGATIVE); GLUCOSE, URINE NEGATIVE (NEGATIVE); KETONES,URINE TRACE mg/dL (NEGATIVE); LEUKOCYTE ESTERASE,URINE NEGATIVE (NEGATIVE); NITRITE,URINE NEGATIVE (NEGATIVE); PROTEIN,URINE 30 mg/dL (NEGATIVE); URINE SPECIFIC GRAVITY 1.029
[2018-06-08 16:32] LABS: COLOR,URINE YELLOW
[2018-06-08 16:44] LABS: URINE AMPHETAMINES SCREEN NEGATIVE; URINE BARBITURATES SCREEN NEGATIVE; URINE BENZODIAZEPINES SCREEN NEGATIVE; URINE COCAINE SCREEN NEGATIVE; URINE MARIJUANA (THC) SCREEN UNCONFIRMED POSITIVE; URINE METHADONE SCREEN NEGATIVE; URINE PHENCYCLIDINE SCREEN NEGATIVE
[2018-06-08 16:51] LABS: ALANINE AMINOTRANSFERASE 35 U/L (21-72); ALBUMIN 4.5 g/dL (3.5-5.0); ALKALINE PHOSPHATASE 112 U/L (38-126); ANION GAP 17 (5-19); ASPARTATE AMINO TRANSFERASE 28 U/L (17-59); BILIRUBIN,DIRECT 0.4 mg/dL (0.0-0.4); BILIRUBIN,TOTAL 0.6 mg/dL (0.2-1.3); BLOOD UREA NITROGEN 11 mg/dL (7-20); CALCIUM 9.8 mg/dL (8.4-10.2); CARBON DIOXIDE 26 mmol/L (22-30); CHLORIDE 100 mmol/L (98-107); GLUCOSE 84 mg/dL (75-110); POTASSIUM 4.7 mmol/L (3.6-5.0); SODIUM 142.5 mmol/L (137-145); TOTAL PROTEIN 8.5 g/dL (6.3-8.2)
[2018-06-08 16:52] LABS: ACETAMINOPHEN < 10 ug/mL (10-30); ALCOHOL < 10 mg/dL (NONE DETECTED); SALICYLATE < 1.0 mg/dL (2.0-20.0)
[2018-06-08] MEDS ORDERED: LORAZEPAM 1 MG TABLET PO PRN (18:31)
[2018-06-08] MEDS ORDERED: ZOLPIDEM TARTRATE 5 MG TABLET PO PRN (18:32)
--- NOTE | 2018-06-08 19:32 | ER Document Report ---
Doctor's Note Notes: 06/08/18 19:30 Interviewed patient. He says he is having suicidal thoughts. He is upset because he went to [place] and was relying upon his brother to help take care of his mother whom the patient left alone. His mother has schizophrenia. When he returned from [place], he found that the brother had not taken care of his mother and that she was somewhat out of control. This made him have a panic attack and suffer some anxiety and is here because he felt badly about not taking care of his mother. He has a history of panic attacks and anxiety as well as bipolar disorder. He is currently not on any medications. Says he has an appointment to be seen at [facility]] on the , just 5 days from now. I will see the patient without return to work tomorrow. He will also receive a psychiatric evaluation tomorrow as he came into late to be assessed this afternoon. 06/09/18 09:47 Rounds: Chart reviewed and patient interviewed. Patient is calm, collected, without agitation. Not aggressive. Very cooperative. Vital signs are all normal. Lab studies were sent for infection anywhere. Drug screen positive marijuana. Patient appears to be medically stable for transfer or discharge. Joana Moya MD
--- NOTE | 2018-06-09 07:34 | EKG REPORT ---
SEVERITY:- NORMAL ECG - SINUS RHYTHM : Confirmed by: Mejia Kasper MD 09-Jun-2018 07:32:31
--- NOTE | 2018-06-09 08:34 | PSYCHOLOGICAL NOTE ---
Psych Note - Psych Note Psych Note: Reason for consult: Suicidal ideation, anxiety Consent permissions: None provided Pt arrived to ED c/o SI and severe anxiety that started today on his bus ride home. Pt states he has increased stress in his life and knew he was coming home to stress. Prior to evaluation clinician observed patient requesting Ativan very calmly. Attending nursed disclosed patient has an as needed ativan for his anxiety. Patient was not presenting in a state of panic or demonstrating any behaviors indicating anxiousness, aggression, or irritability. Clinician requested nurse to hold the Ativan until clinician finished evaluation. Patient recognizes clinician upon entry stating "Oh Hi... 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 He disclosed that he went to [place] for 9 days for a concert to celebrate 6 months free of suicidal ideation. However, upon taking the bus back from [place] his anxiety began to increase. He reports his brother was supposed to be watching their mother while he was gone to make sure she takes her medication however he does not believe he did because as he got closer his mother's phone calls became more frequent and erratic. Patient became so stressed he started to have passive suicidal ideation. He reports that he immediately called his friends and tried to do "self positive talking." He disclosed his friends told him he should come to the hospital so he did. He continued to report that he also has some other increased stressors such as June 13 will be the anniversary of his friend's back in 2013 and another friend posted 2 days ago suicidal comments. He stated nobody was able to get a hold of her until she post again on [place] yesterday so he is feeling better about that. Patient reviewed with clinician differences in his life that have reflected positively on his mental health (patient has not been seen here at [facility] since November 2016). He discloses that having a stable living environment and eating healthy has really been helpful for him. He also reports that he no longer goes to [facility] for medications because they stopped taking his insurance so has been off medications. He disclosed that because of the increased stress he had made an appointment with [facility] for 06/13/2018; "I can handle my moods going up and down even without medications but it is the stress and anxiety that triggers my suicidal ideation." Clinician conducted psychoeducation on medications and recommended the patient NOT get any anti-anxiety medication that is a controlled substance (i.e. Ativan and Xanax) and reinforced patient's positive steps in using his social support system and positive coping skills. Patient thinks clinician and stated that it "means a lot" to him that the clinician noted and commented to his positive progress. Patient is alert and orientated to person, place, time and circumstance. Mood is euthymic with congruent affect as evidenced by smiling laughing and openly engaging with clinician. Patient endorses passive suicidal ideation yesterday ( i.e. no plans means or intent); denies current. Patient denies homicidal ideation. Delusions are absent behaviors congruent with an intact reality based presentation i.e. organized linear thought process. Eye contact is well- maintained. Conversational speech was within normal rate, tone and prosody. Intellectual abilities appear to be within the average to low average range. Attention and concentration are good. Insight, judgment, impulse control are good as evidenced by reaching out and using his support system and then following through with their recommendations of coming to the hospital. Medication recommendations per [facility]'s contracted psychiatrist Dr. Eri THORPE are as follows 1. BuSpar 5 mg twice daily Diagnosis 1. 296.40 (F31) Bipolar I Disorder, Unspecified 2. 305.20 (F12.10) Cannabis Use Disorder, Mild 3. R/O Anxiolytic, Benzodiazepine Use Disorder Impression/plan: Patient is cleared from acute psychiatric services. Patient does not meet IVC criteria per [place] GS 122C. Patient discloses passive suicidal ideation (i.e. no plans means or intent) yesterday and denies current. Patient openly engaged with clinician, discussed positive differences in his life which has dramatically decreased his need for acute psychiatric services here at [facility]. Patient has established a social support system with positive coping skills that have been very successful. Patient has made an appointment with [facility] on 06/13/2018 for assistance with his anxiety. Dr. Ogden was consulted and the care and management of this patient; attending physician is agreement with recommendations and disposition.
--- NOTE | 2018-06-09 09:13 | ER Document Report ---
ED General - General Chief Complaint: Psych Problem Stated Complaint: PSYCH EVAL Time Seen by Provider: 06/08/18 14:58 Mode of Arrival: Ambulatory TRAVEL OUTSIDE OF THE [place] IN LAST 30 DAYS: No - Related Data Allergies/Adverse Reactions: Penicillins Allergy (Verified 06/08/18 14:25) chocolate Allergy (Uncoded 06/08/18 14:25) IVP DYE Allergy (Uncoded 06/08/18 14:25) pork Allergy (Uncoded 06/08/18 14:25) Past Medical History - General Information source: Patient - Social History Smoking Status: Current Every Day Smoker Frequency of alcohol use: Rare Drug Abuse: None Family History: Reviewed & Not Pertinent, Other - mental illness Patient has suicidal ideation: Yes Patient has homicidal ideation: No Neurological Medical History: Reports: Hx Seizures Renal/ Medical History: Denies: Hx Peritoneal Dialysis Psychiatric Medical History: Reports: Hx Anxiety, Hx Attention Deficit Hyperactivity Disorder, Hx Bipolar Disorder, Hx Obsessive Compulsive Disorder, Hx Post Traumatic Stress Disorder - Immunizations Hx Diphtheria, Pertussis, Tetanus Vaccination: No Physical Exam - Vital signs Vitals: Temp Pulse Resp BP Pulse Ox 98.1 F 103 H 18 121/81 96 06/08/18 14:27 06/08/18 14:27 06/08/18 14:27 06/08/18 14:27 06/08/18 14:27 Course - Vital Signs Vital signs: Temp Pulse Resp BP Pulse Ox 97.9 F 96 18 118/78 100 06/09/18 07:31 06/09/18 07:31 06/09/18 07:31 06/09/18 07:31 06/09/18 07:31 - Laboratory Result Diagrams: 06/08/18 15:36 06/08/18 15:36 Laboratory results interpreted by me: 06/08/18 06/08/18 06/08/18 15:36 15:36 15:36 WBC 13.7 H RBC 5.83 H MCV 78 L MCH 26.8 L RDW 16.2 H Absolute Neutrophils 9.8 H Total Protein 8.5 H Urine Protein 30 H Urine Ketones TRACE H Urine Urobilinogen 4.0 H Salicylates < 1.0 L Acetaminophen < 10 L Discharge - Discharge Clinical Impression: Passive suicidal ideations, Anxiety Condition: Stable Disposition: HOME, SELF-CARE Additional Instructions: You have been evaluated by both medical and the behavioral health teams and have been deemed appropriate for discharge. Please continue with your previously scheduled appointment with [facility] on 13 June. You have been prescribed medication, BuSpar 5 mg twice daily; please take as directed. DEPRESSION: Your evaluation reveals that you have mental depression. While symptoms may be vague, they often include disturbance of sleep, fatigue, loss of appetite , and general loss of interest in life. While depression may be a side effect of drugs, or a reaction to a major change in your life, many cases have no known cause. If depression is acute, and related to a major loss in your life, you can expect it to clear completely with time. If you have been depressed a long time , are prone to repeated bouts of depression or low mood, or have been thinking of suicide, get help. Depression can be treated with anti-depressant medication and counselling. Long-term depression will often take a few weeks to clear, even with appropriate medication. Follow-up care is important. SUICIDAL IDEATION: Suicidal ideation is a common medical term for thoughts about suicide, which may be as detailed as a formulated plan, without the suicidal act itself. Although most people who undergo suicidal ideation do not commit suicide, some go on to make suicide attempts. The range of suicidal ideation varies greatly from fleeting to detailed planning, role playing, and unsuccessful attempts. While thoughts about suicide are common, most people do not carry out serious actions to commit suicide. Based upon your evaluation and discussion with you, we do not believe you are currently at risk to act upon your thoughts of suicide. You have agreed to return to the Emergency Department, at any time , if you feel inclined to act upon your suicidal thoughts. FOLLOW-UP CARE: If you experience worsening or a significant change in your symptoms, notify the physician immediately or return to the Emergency Department at any time for re-evaluation. Referrals: [facility] [Outside] - 06/13/18
[2018-06-09 10:12] VITALS: BP 115/75
== END 2018-06-09 10:12 | disposition home or self-care (01) ==
LOC: ER 14:24
DX: R45.851 Suicidal ideations (principal); F41.9 Anxiety disorder, unspecified; F17.200 Nicotine dependence, unspecified, uncomplicated
CPT/HCPCS: 93005; 99285; 36415; 80307 ×4; 85025; 80053; 81001; 93010; A9270

== ENCOUNTER 2018-06-11 05:41 | Emergency (ER) | payer MEDICARE, MEDICAID ==
[2018-06-11 05:51] VITALS: BP 121/78
[2018-06-11] MEDS ORDERED: BUSPIRONE HCL 10 MG TABLET PO ONE ×2 (06:42)
[2018-06-11] MEDS ORDERED: HYDROXYZINE PAMOATE 25 MG CAPSULE (4 CAP/ER DISP) PO SCH (06:45)
--- NOTE | 2018-06-11 06:50 | ER Document Report ---
ED General - General Chief Complaint: Anxiety Stated Complaint: POSSIBLE ANXIETY ATTACK Time Seen by Provider: 06/11/18 06:30 TRAVEL OUTSIDE OF THE [place] IN LAST 30 DAYS: No - HPI Patient complains to provider of: Anxiety Notes: Patient is coming in for anxiety. 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 Patient denies any homicidal suicidal ideation. Upon my evaluation patient sitting comfortably and calmly had been sitting In common with the door open prior to my evaluation. Patient states he was recently seen here in the ER evaluated for anxiety started on medication, BuSpar patient states there is a mixup with his Medicaid and he was unable to afford his medication therefore did not get the BuSpar. Patient also states she was unable to fill his medications because it was his birthday day prior to arrival here. Patient denies any illicit drug use alcohol abuse. Patient is resting comfortably upon my evaluation. Asking for something to drink. Denies any fevers chills nausea vomiting diarrhea - Related Data Allergies/Adverse Reactions: Penicillins Allergy (Verified 06/08/18 14:25) chocolate Allergy (Uncoded 06/08/18 14:25) IVP DYE Allergy (Uncoded 06/08/18 14:25) pork Allergy (Uncoded 06/08/18 14:25) Past Medical History - Social History Smoking Status: Current Every Day Smoker Chew tobacco use (# tins/day): No Frequency of alcohol use: Social Drug Abuse: Marijuana Family History: Reviewed & Not Pertinent, Other - mental illness Patient has suicidal ideation: Yes - HERE 2 D AGO W/ SEVERE ANXIETY Patient has homicidal ideation: No Neurological Medical History: Reports: Hx Seizures Renal/ Medical History: Denies: Hx Peritoneal Dialysis Psychiatric Medical History: Reports: Hx Anxiety, Hx Attention Deficit Hyperactivity Disorder, Hx Bipolar Disorder, Hx Obsessive Compulsive Disorder, Hx Post Traumatic Stress Disorder - Immunizations Hx Diphtheria, Pertussis, Tetanus Vaccination: No Review of Systems - Review of Systems Constitutional: No symptoms reported EENT: No symptoms reported Cardiovascular: No symptoms reported Respiratory: No symptoms reported Gastrointestinal: No symptoms reported Genitourinary: No symptoms reported Male Genitourinary: No symptoms reported Musculoskeletal: No symptoms reported Skin: No symptoms reported Hematologic/Lymphatic: No symptoms reported Neurological/Psychological: Anxiety -: Yes All other systems reviewed and negative Physical Exam - Vital signs Vitals: Temp Pulse Resp BP Pulse Ox 98.8 F 110 H 20 121/78 97 06/11/18 05:50 06/11/18 05:50 06/11/18 05:50 06/11/18 05:50 06/11/18 05:50 Interpretation: Normal - General General appearance: Appears well, Alert - HEENT Head: Normocephalic, Atraumatic Eyes: Normal Pupils: PERRL - Respiratory Respiratory status: No respiratory distress Chest status: Nontender Breath sounds: Normal Chest palpation: Normal - Cardiovascular Rhythm: Regular Heart sounds: Normal auscultation Murmur: No - Abdominal Inspection: Normal Distension: No distension Bowel sounds: Normal Tenderness: Nontender Organomegaly: No organomegaly - Back Back: Normal, Nontender - Extremities General upper extremity: Normal inspection, Nontender, Normal color, Normal ROM , Normal temperature General lower extremity: Normal inspection, Nontender, Normal color, Normal ROM , Normal temperature, Normal weight bearing. No: Shala's sign - Neurological Neuro grossly intact: Yes Cognition: Normal Orientation: AAOx4 [place] Coma Scale Eye Opening: Spontaneous [place] Coma Scale Verbal: Oriented [place] Coma Scale Motor: Obeys Commands [place] Coma Scale Total: 15 Speech: Normal Motor strength normal: LUE, RUE, LLE, RLE Sensory: Normal - Psychological Associated symptoms: Normal affect, Normal mood - Skin Skin Temperature: Warm Skin Moisture: Dry Skin Color: Normal Course - Re-evaluation Re-evalutation: 06/11/18 07:31 Patient resting calmly no suicidal homicidal ideation. No signs of acute anxiety at this time no other medical pathology seen on his physical examination. I explained to the patient that it is his responsibility to find a means to obtain his medications we will have our social worker psychiatric contact him on Wednesday to make sure that he has followed up. At this time I will give the patient a dose of his morning BuSpar and we will send him home with a pill in hand for his nighttime BuSpar. To cover him for the next few days also to we will get the patient a sample pack of Vistaril he can take 1 tablet nightly for the next 4 days. Patient states an understanding of this plan and is grateful for his care at this time. These instructions have been related to the nursing staff and patient is currently pending discharge. 06/11/18 07:53 Upon discharge notify the nursing staff and the patient stating he is having some passive suicidal ideation. Again patient has been evaluated and has been pending discharge. Patient initially had agreed to plan discharge with his medications. The reviewed previous psych notes this looks to be manipulative behavior as patient denied suicidal ideation at check-in and upon my initial evaluation. We will continue with plan discharge patient home with medications. Patient has been given resources at his previous psych visit encouraged patient to follow-up with these resources. - Vital Signs Vital signs: Temp Pulse Resp BP Pulse Ox 98.8 F 110 H 20 121/78 97 06/11/18 05:50 06/11/18 05:50 06/11/18 05:50 06/11/18 05:50 06/11/18 05:50 Discharge - Discharge Clinical Impression: Anxiety Condition: Good Disposition: HOME, SELF-CARE Instructions: Anxiety ([facility]) Additional Instructions: Your evaluation does not reveal any critical pathology. Please make sure that you follow-up on Wednesday to have your BuSpar filled. We will give you a dose of BuSpar this morning and I will give you a dose of BuSpar for tonight. We will also start a medication called Vistaril for your anxiety. we will give you 4 tablets to take 1 tablet at nighttime for the next 4 days. . Follow-up with providers listed upon your last visit.
== END 2018-06-11 07:55 | disposition home or self-care (01) ==
LOC: ER 05:41
DX: F41.9 Anxiety disorder, unspecified (principal); T43.596A Underdosing of other antipsychotics and neuroleptics, initial encounter; Z91.120 Patient's intentional underdosing of medication regimen due to financial hardship; Z91.14 Patient's other noncompliance with medication regimen; F17.200 Nicotine dependence, unspecified, uncomplicated; F12.10 Cannabis abuse, uncomplicated; Z88.0 Allergy status to penicillin; Z91.018 Allergy to other foods; Z91.041 Radiographic dye allergy status
CPT/HCPCS: 99283; J3490; A9270

== ENCOUNTER 2018-06-11 14:14 | Emergency (ER) | payer MEDICARE, MEDICAID ==
[2018-06-11 14:34] VITALS: BP 137/91
--- NOTE | 2018-06-11 15:21 | ER Document Report ---
ED Medical Screen (RME) - General Chief Complaint: Suicidal Ideation Stated Complaint: SI EVAL Time Seen by Provider: 06/11/18 14:31 Mode of Arrival: Ambulatory Information source: Patient Notes: This is a 33-year-old man who is accompanied by mobile crisis. He states that he does have thoughts of suicide with intentions to run in front of traffic. He was sitting in front of right a when EMS and [place] [employer] were on scene and called mobile crisis. The patient does have a psychiatric history and has had multiple encounters in the emergency room with similar complaints. He is felt to have passive suicidal ideations and is at times manipulative. He was started on BuSpar and given a prescription but did not fill the prescription. He was given resources that he is not followed through with. He was seen 2 other times in the last 3 days and evaluated by psychiatry who knows him well. He was given medicines (BuSpar) to take an Vistaril to take. He states he wants to go to [facility] (which is in [place]) but states he will absolutely not go to [place]. Patient states that if he is discharged from here; he is going to get money in a bus ticket and go to [place]. I have had a long discussion with the mobile home worker (William) as well as our psychology team here in the emergency room. The general sense is that the patient is not acutely suicidal and that he is goal-directed to some degree ( i.e. getting a bus ticket going in [place]), but has refused the resources that he repetitively is given from here. TRAVEL OUTSIDE OF THE [place] IN LAST 30 DAYS: No - HPI Onset: Last week Onset/Duration: Gradual Quality of pain: No pain Severity: None Pain Level: Denies Associated Symptoms: denies: Chest pain, Shortness of breath Exacerbated by: Denies Relieved by: Denies Similar symptoms previously: Yes Recently seen / treated by doctor: Yes - Related Data Smoking: Non-smoker Frequency of alcohol use: None Drug Abuse: None Allergies/Adverse Reactions: Penicillins Allergy (Verified 06/11/18 14:17) chocolate Allergy (Uncoded 06/11/18 14:17) IVP DYE Allergy (Uncoded 06/11/18 14:17) pork Allergy (Uncoded 06/11/18 14:17) Past Medical History - General Information source: Patient - Social History Cigarette use (# per day): No Chew tobacco use (# tins/day): No Frequency of alcohol use: 2-3 times a month socially Drug Abuse: Marijuana Lives with: Homeless Family history: None Neurological Medical History: Reports: Hx Seizures Renal/ Medical History: Denies: Hx Peritoneal Dialysis Psychiatric Medical History: Reports: Hx Anxiety, Hx Attention Deficit Hyperactivity Disorder, Hx Bipolar Disorder, Hx Obsessive Compulsive Disorder, Hx Post Traumatic Stress Disorder - Immunizations Hx Diphtheria, Pertussis, Tetanus Vaccination: No Review of Systems - Review of Systems Constitutional: denies: Chills, Fever EENT: No symptoms reported Cardiovascular: No symptoms reported Respiratory: No symptoms reported Gastrointestinal: No symptoms reported Genitourinary: No symptoms reported Male Genitourinary: No symptoms reported Musculoskeletal: No symptoms reported Skin: No symptoms reported Hematologic/Lymphatic: No symptoms reported Neurological/Psychological: See HPI Physical Exam - Vital signs Vitals: Temp Pulse Resp BP Pulse Ox 98.9 F 105 H 18 137/91 H 95 06/11/18 14:32 06/11/18 14:32 06/11/18 14:32 06/11/18 14:32 06/11/18 14:32 Notes: Physical exam: GENERAL: 33-year-old male, alert and oriented 3, smiling and joking as soon as I entered the room. HEAD: Atraumatic, normocephalic. EYES: Pupils equal round and reactive to light, extraocular movements intact, sclera anicteric, conjunctiva are normal. ENT: TMs normal, nares patent, oropharynx clear without exudates. Moist mucous membranes. NECK: Normal range of motion, supple without obvious mass LUNGS: Breath sounds clear to auscultation bilaterally and equal. No wheezes rales or rhonchi. HEART: Regular rate and rhythm without murmurs, rubs or gallops. ABDOMEN: Soft, normoactive bowel sounds. No tenderness to palpation. No guarding, no rebound. No masses appreciated. EXTREMITIES: Normal range of motion, no pitting or edema. No clubbing or cyanosis. NEUROLOGICAL: Cranial nerves II through XII grossly intact. Normal speech, moving all extremities. PSYCH: He is insisting on going to [facility]. He refuses to go to the care home. SKIN: Warm, Dry, normal turgor, no rashes or lesions noted. Course - Re-evaluation Re-evalutation: 06/11/18 15:34 At the time of discharge, patient now states he needs Ativan. He is insistent about going to nowhere else other than [facility]. Mobile crisis is here and is offering to the care home. Patient is very resistant to this. 06/11/18 15:36 06/11/18 15:51 Patient did request that the mobile home worker bring him to his mother's house so that the patient could shredder picker his belongings and the mobile crisis did agree to this. - Vital Signs Vital signs: Temp Pulse Resp BP Pulse Ox 98.9 F 105 H 18 137/91 H 95 06/11/18 14:32 06/11/18 14:32 06/11/18 14:32 06/11/18 14:32 06/11/18 14:32 Doctor's Discharge - Discharge Clinical Impression: Bipolar affective disorder Condition: Stable Disposition: HOME, SELF-CARE Additional Instructions: Follow-up with a psychiatrist: You have been given resource lists. Follow-up at the care home: You have been given resource lists.
== END 2018-06-11 15:58 | disposition home or self-care (01) ==
LOC: ER 14:14
DX: F31.9 Bipolar disorder, unspecified (principal); R45.851 Suicidal ideations; F41.9 Anxiety disorder, unspecified; F12.10 Cannabis abuse, uncomplicated; Z59.0 Homelessness; Z88.0 Allergy status to penicillin; Z91.018 Allergy to other foods; Z91.041 Radiographic dye allergy status
CPT/HCPCS: 99284